=== PATIENT | male | born 1980 | race Caucasian/White ===

== ENCOUNTER 2017-06-05 14:08 | Observation (INO) | payer OTHER ==
[2017-06-05 14:45] LABS: #Basophils 0.1 thou/uL (0.0-0.2); #Eosinphils 0.4 thou/uL (0.0-0.7); #Lymphocytes 4.7 thou/uL (1.20-3.40); #Monocytes 1.2 thou/uL (0.11-0.59); #Neutrophils 7.3 thou/uL (1.40-6.50); %Basophils 0.8 % (0.0-1.0); %Eosinophils 2.8 % (0.0-10.0); %Lymphocytes 34.3 % (21.0-51.0); %Monocytes 8.5 % (0.0-10.0); Hematocrit 50.2 % (42.0-52.0); Mean Platelet Volume 8.3 fL (7.4-10.4); Red Blood Cell (RBC) Count 5.72 mill/uL (4.70-6.10); White Blood Cell (WBC) Count 13.6 thou/uL (4.8-10.8)
[2017-06-05 15:11] LABS: Troponin I Less than 0.010 ng/mL (< 0.028)
[2017-06-05 15:12] LABS: Bilirubin, Total 0.7 mg/dL (0.2-1.2); Calcium 10.1 mg/dL (7.8-10.44); Chloride 100 mmol/L (98-107)
[2017-06-05 15:16] LABS: Globulin 3.2 g/dL (2.4-3.5); Protein, Total 7.2 g/dL (6.0-8.3)
[2017-06-05 15:18] LABS: Carbon Dioxide 28 mmol/L (22-29)
[2017-06-05 15:19] LABS: Alkaline Phosphatase 74 U/L (40-150)
[2017-06-05 15:20] LABS: BUN (Urea Nitrogen) 13 mg/dL (8.9-20.6); Calc. Creatinine Clearance 0 mL/min (70-130); Estimated GFR-MDRD 90
[2017-06-05 15:21] LABS: AST (SGOT) 20 U/L (5-34)
[2017-06-05 15:22] LABS: ALT (SGPT) 42 U/L (8-55); CK (CPK) 108 U/L (30-200); Lipase 29 U/L (8-78)
--- NOTE | 2017-06-05 15:25 | RAD ---
PORTABLE CHEST: History: Chest pain. FINDINGS: Lungs are clear. No infiltrates seen. Heart and mediastinum unremarkable. IMPRESSION: No acute process. POS: [facility]
[2017-06-05 15:32] LABS: Anion Gap 14 mmol/L (10-20)
[2017-06-05 17:50] VITALS: BMI 51.1
[2017-06-05] MEDS ORDERED: Acetaminophen 650 MG Suppository PR PRN (18:18)
[2017-06-05] MEDS ORDERED: Nitroglycerin 0.4 MG TAB (25 Tab Bottle) PO PRN (18:18)
[2017-06-05] MEDS ORDERED: Dextrose 5% in Water 1,000 ML IV PRN (18:18)
[2017-06-05] MEDS ORDERED: Acetaminophen 325 MG TAB PO PRN (18:18)
[2017-06-05] MEDS ORDERED: HumaLOG 300 UNITS/3 ML VIAL SC PRN ×2 (18:18→19:59)
[2017-06-05] MEDS ORDERED: Dextrose 50% Abboject 50 ML SYRINGE SLOW IVP PRN (18:18)
[2017-06-05 18:23] LABS: Troponin I Less than 0.010 ng/mL (< 0.028)
--- NOTE | 2017-06-05 19:18 | HP ---
PRIMARY CARE PROVIDER: Esther Patino M.D. CHIEF COMPLAINT: Chest pain. HISTORY OF PRESENT ILLNESS: Mr. Miramontes is a pleasant 36-year-old gentleman, who was seen at [facility] on 06/05/2017. 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 He felt pain over the left side of his chest. He reports that it was sharp, 10/10 at its worst, initially nonradiating, but subsequently r adiating to the left arm, patient felt clammy and short of breath. He denies any nausea or vomiting. He cannot recall any aggravating or relieving factors. The chest pain lasted a couple of hours. REVIEW OF SYSTEM: The following complete review of systems was negative, unless otherwise mentioned in the HPI or below: Constitutional: Weight loss or gain, sense of well-being, ability to conduct usual activities, exerc ise tolerance. Skin/Breast: Rash, itching, changes in hair growth or loss, nail changes, breast lumps, tenderness, swelling, nipple discharge. Eyes: Vision, double vision, tearing, blind spots, pain. ENT/Mouth: Headaches (location, time of onset, duration, precipitating factors), vertigo, lightheade dness, injury. Vision, double vision, tearing, blind spots, pain, nose bleeding, colds, obstruction, discharge, dental difficulties, gingival bleeding, dentures, neck stiffness, pain, tenderness, masses in thyroid or other areas. Cardiovascular: Precordial pain, substernal distress, palpitations, syncope, dyspnea on exertion, or thopnea, nocturnal paroxysmal dyspnea, edema, cyanosis, hypertension, heart murmurs, varicosities, ph lebitis, claudication. Respiratory: Pain, shortness of breath, wheezing, stridor, cough, hemoptysis, fever or night sweats. Gastrointestinal: Poor appetite, dysphagia, indigestion, abdominal pain, heartburn, eructation, naus ea, vomiting, hematemesis, jaundice, constipation, or diarrhea, abnormal stools (gage-colored, tarry, bloody, greasy, foul smelling), flatulence, hemorrhoids, recent changes in bowel habits. Genitourinary: Urgency, frequency, dysuria, nocturia, hematuria, polyuria, oliguria, unusual (or narcisa nge in) color of urine, stones, hesitancy, change in size of stream, dribbling, acute retention or in continence, libido, potency. Musculoskeletal: Pain, swelling, redness or heat of muscles or joints, limitation, of motion, muscul ar weakness, atrophy, cramps. Neurologic/Psychiatric: Convulsions, paralyses, tremor, incoordination, parasthesias, difficulties w ith memory of speech, sensory or motor disturbances, or muscular coordination (ataxia, tremor), emoti onal problems, anxiety, depression, previous psychiatric care, unusual perceptions, hallucinations. Allergy/Immunologic: Skin rash, anemia, bleeding tendency, polydipsia, polyuria, intolerance to heat or cold. PAST MEDICAL HISTORY: Significant for hypertension, diabetes mellitus type 2, and dyslipidemia. PAST SURGICAL HISTORY: None. SOCIAL HISTORY: The patient quit smoking 3 months ago. He denies any alcohol use or recreational d rug use. FAMILY HISTORY: Significant for coronary artery disease and arrhythmias in his grandparents, materna l uncles. ALLERGIES: No known drug allergies. CURRENT MEDICATIONS: Include glipizide 2.5 mg daily, Victoza 0.6 mg daily, lisinopril 20 mg 2 times a day, metformin 1000 mg 2 times a day, and pravastatin 10 mg at bedtime. PHYSICAL EXAMINATION: GENERAL: On examination, Mr. Miramontes is awake and alert, not in acute distress. VITAL SIGNS: Blood pressure is 138/96, pulse is 74. He is breathing at rate of 16, and saturating 9 9% on room air. He is afebrile. He is morbidly obese, with a BMI of 51.2 kilogram per square meter. EYES: No scleral icterus. No conjunctival pallor. ENT: Moist mucosal membranes, no oropharyngeal erythema or exudates. NECK: Supple, nontender, normal range of movement, trachea is midline. RESPIRATORY: Accessory muscles of breathing are not active. Chest wall movements are symmetric bila terally. LUNGS: Clear to auscultation without wheeze, rhonchi, or crepitations. CARDIOVASCULAR: S1 and S2 are heard, regular. Peripheral pulses are palpable. No carotid bruit, no pericardial rub. ABDOMEN: Distended, nontender, bowel sounds heard. No hepatomegaly, no splenomegaly. NEUROLOGIC: Cranial nerves II through XII are intact. Deep tendon reflexes are 2+. MUSCULOSKELETAL: Power is 5/5 in all 4 extremities. Normal range of movement at all major extremity joints. SKIN: No rashes or subcutaneous nodules. LYMPHATIC: No cervical lymphadenopathy. PSYCHIATRIC: Normal mood and normal affect, patient is oriented to person, place, and time. LABORATORY DATA: Mr. Miramontes's labs and investigations were reviewed. I reviewed his electrocardiogra m, which shows normal sinus rhythm, no ST changes to suggest an acute coronary syndrome. I also revi ewed his chest x-ray, which does not show any pulmonary infiltrates. Laboratory investigation showed leukocytosis with 13,600 white cells, of which 53.6% are neutrophils, normal hemoglobin, normal plat elet count, elevated glucose of 250, but otherwise unremarkable. Comprehensive metabolic profile, no rmal troponin I x2 and normal lipase. ASSESSMENT AND PLAN: Mr. Miramontes is a pleasant 36-year-old gentleman, who was seen at [facility] on 06/05/2017. His problem list includes: 1. Chest pain: The etiology is unclear at this time. Mr. Miramontes will be admitted to the hospital fo r further management, including telemetry monitoring and stress test. We will also check D-dimer to rule out pulmonary embolism. 2. Diabetes mellitus type 2: We will start Accu-Cheks and insulin. We will continue Victoza and ho ld glyburide since patient will be n.p.o. in the morning. 3. Dyslipidemia: Continue pravastatin. 4. Hypertension: Continue home medications, monitor vital signs and titrate antihypertensives as ne eded. Many thanks for allowing me to participate in your patient's care. Please feel free to contact me wi th any questions or concerns. LEVEL OF RISK: High. LEVEL OF COMPLEXITY: High.
[2017-06-05] MEDS: Lisinopril 20 MG TAB PO SCH (19:28)
[2017-06-05] MEDS ORDERED: Pravastatin Sodium 20 MG TAB PO SCH (21:00)
[2017-06-06 04:09] LABS: #Basophils 0.1 thou/uL (0.0-0.2); #Eosinphils 0.4 thou/uL (0.0-0.7); #Lymphocytes 3.7 thou/uL (1.20-3.40); #Neutrophils 6.6 thou/uL (1.40-6.50); %Basophils 1.2 % (0.0-1.0); %Eosinophils 3.2 % (0.0-10.0); %Lymphocytes 31.2 % (21.0-51.0); %Monocytes 8.4 % (0.0-10.0); Hematocrit 46.6 % (42.0-52.0); Mean Platelet Volume 8.5 fL (7.4-10.4); Red Blood Cell (RBC) Count 5.34 mill/uL (4.70-6.10); White Blood Cell (WBC) Count 11.8 thou/uL (4.8-10.8)
[2017-06-06 04:30] LABS: Anion Gap 13 mmol/L (10-20); BUN (Urea Nitrogen) 15 mg/dL (8.9-20.6); Calc. Creatinine Clearance 302 mL/min (70-130); Calcium 9.3 mg/dL (7.8-10.44); Carbon Dioxide 23 mmol/L (22-29); Chloride 102 mmol/L (98-107); Estimated GFR-MDRD Greater than 90
[2017-06-06] MEDS ORDERED: metFORMIN 500 MG TAB PO SCH (08:00)
[2017-06-06] MEDS: Lisinopril 20 MG TAB PO SCH (08:36)
[2017-06-06] MEDS ORDERED: (Liraglutide [Victoza 2-Pak] 0.6 MG) SC SCH (09:00)
[2017-06-06] MEDS ORDERED: Enoxaparin Sodium 40 MG/0.4 ML SYRINGE SC SCH (09:00)
[2017-06-06 12:05] VITALS: BP 116/75; TEMP 97.6
--- NOTE | 2017-06-06 14:53 | NM ---
NUCLEAR MEDICINE CARDIAC MYOCARDIAL PERFUSION SPECT EJECTION FRACTION STUDY WALL MOTION CINE: HISTORY: 36-year-old male smoker with acute chest pain. TECHNIQUE: Stress-only study. Number of days: 1 Rest study: Tc99m sestamibi (Cardiolite) dose: Not administered. Exercise stress: treadmill. Stress study: Tc99m sestamibi (Cardiolite) dose: 31.0 mCi FINDINGS: CARDIAC (MYOCARDIAL PERFUSION) SPECT There is homogeneous uptake throughout the left ventricular myocardium, with no reversible defects or fixed defects. EJECTION FRACTION STUDY EF = 55% WALL MOTION CINE There is septal hypokinesis. The rest of the left ventricle moves normally. IMPRESSION: 1. No evidence of left ventricular ischemia. 2. Hypokinetic septum. VLAD Ornelas POS: [facility]
--- NOTE | 2017-06-06 22:33 | DIS ---
PRIMARY CARE PHYSICIAN: Esther Patino M.D. DATE OF ADMISSION: 06/05/2017 DATE OF DISCHARGE: 06/06/2017 DISCHARGE DIAGNOSIS: Chest pain. CONDITION OF PATIENT AT THE TIME OF DISCHARGE: Stable. I assessed Mr. Miramontes on the day of discharge . He denies any chest pain or shortness of breath. He denies any fevers or chills. Vital signs are stable. S1 and S2 are heard, regular. Lungs are clear to auscultation bilaterally. DISCHARGE MEDICATIONS: No changes were made to his home medications, which include glipizide 2.5 mg daily, Victoza 0.6 mg daily, lisinopril 20 mg 2 times a day, metformin 1000 mg 2 times a day and prav astatin 10 mg at bedtime. HOSPITAL COURSE: Mr. Miramontes is a pleasant 36-year-old gentleman who was admitted to [facility] on 06/05/2017 on observation status for chest pain, nonpleuritic. He had a normal D -dimer. He had normal cardiac enzymes and normal electrocardiogram. He underwent nuclear stress anupama t, which did not reveal any evidence of left ventricle ischemia. 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 Many thanks for allowing me to participate in your patient's care. Please feel free to contact me wi th any questions or concerns. DISCHARGE DESTINATION: Home.
== END 2017-06-06 14:33 | disposition home or self-care (01) ==
LOC: ERS 14:08 → 2SW 15:46
PROVIDERS: ADMIT Family Medicine; ATTEND Family Medicine
DX: R07.9 Chest pain, unspecified (principal); I10 Essential (primary) hypertension; E11.9 Type 2 diabetes mellitus without complications; E78.5 Hyperlipidemia, unspecified; Z79.84 Long term (current) use of oral hypoglycemic drugs; Z79.899 Other long term (current) drug therapy; Z87.891 Personal history of nicotine dependence
CPT/HCPCS: 36415; 36416; 71010; 78452; 80048; 80053; 82550; 82553; 83690; 84484; 85025; 85379; 93005; 93017; 96372; A9500; G0378; J1650

== ENCOUNTER 2018-11-16 05:49 | Emergency (ER) | payer OTHER ==
[2018-11-16] MEDS ORDERED: Ondansetron PF 4 MG/2 ML Vial ONE (06:16)
[2018-11-16] MEDS ORDERED: Ketorolac Tromethamine 30 MG/ML VIAL ONE (06:16)
[2018-11-16 06:29] LABS: #Basophils 0.1 thou/uL (0.0-0.2); #Eosinphils 0.5 thou/uL (0.0-0.7); #Lymphocytes 3.5 thou/uL (1.20-3.40); #Monocytes 0.9 thou/uL (0.11-0.59); #Neutrophils 9.5 thou/uL (1.40-6.50); %Basophils 0.8 % (0.0-1.0); %Eosinophils 3.3 % (0.0-10.0); %Lymphocytes 23.9 % (21.0-51.0); %Monocytes 6.5 % (0.0-10.0); %Neutrophils 65.5 % (42.0-75.0); Hemoglobin 15.5 g/dL (14.0-18.0); Mean Corpuscular HGB CONC 31.8 g/dL (32.0-36.0); Mean Corpuscular Hemoglobin 27.7 pg (27.0-31.0); Mean Platelet Volume 8.3 fL (7.4-10.4); Platelet Count 287 thou/uL (130-400); Red Blood Cell (RBC) Count 5.61 mill/uL (4.70-6.10); White Blood Cell (WBC) Count 14.5 thou/uL (4.8-10.8)
[2018-11-16 06:48] LABS: ALT (SGPT) 30 U/L (8-55); AST (SGOT) 16 U/L (5-34); Albumin 3.9 g/dL (3.5-5.0); Alkaline Phosphatase 68 U/L (40-150); Anion Gap 12 mmol/L (10-20); BUN (Urea Nitrogen) 10 mg/dL (8.9-20.6); Bilirubin, Total 0.6 mg/dL (0.2-1.2); Calc. Creatinine Clearance 0 mL/min (70-130); Calcium 9.3 mg/dL (7.8-10.44); Carbon Dioxide 26 mmol/L (22-29); Chloride 101 mmol/L (98-107); Estimated GFR-MDRD Greater than 90; Globulin 2.9 g/dL (2.4-3.5); Glucose 213 mg/dL (70-105); Lipase 94 U/L (8-78); Potassium 4.2 mmol/L (3.5-5.1); Protein, Total 6.8 g/dL (6.0-8.3); Sodium 135 mmol/L (136-145)
--- NOTE | 2018-11-16 08:01 | RAD ---
ABDOMINAL RADIOGRAPH 2 VIEWS: Date: 11/16/18 INDICATION: History of abdominal pain. FINDINGS: Lung bases are clear. Bowel gas pattern is nonspecific, but without evidence of obstruction. No suspi cious calcification is evident. No acute osseous abnormality is noted. IMPRESSION: No definite acute abnormality. POS: [facility]
--- NOTE | 2018-11-16 08:05 | ULT ---
RIGHT UPPER QUADRANT ULTRASOUND: Date: 11/16/18 INDICATION: Right upper quadrant pain. COMPARISON: Prior exam dated 10/23/11. FINDINGS: Overlying bowel gas and body habitus limit image detail. There is diffuse increased echogenicity of the liver suspicious for fatty infiltration. Visualized ga llbladder unremarkable. No sonographic Gamez's sign reported. Common bile duct measured 5.6 mm. Visu alized aspects of the pancreas are unremarkable. Right kidney measures 14.7 cm. No definite hydroneph rosis evident. IMPRESSION: Fatty liver. Otherwise no additional sonographic abnormality. POS: [facility]
== END 2018-11-16 08:10 | disposition home or self-care (01) ==
LOC: ERS 05:49
DX: K59.00 Constipation, unspecified (principal); R11.2 Nausea with vomiting, unspecified; E11.9 Type 2 diabetes mellitus without complications; I10 Essential (primary) hypertension; E78.00 Pure hypercholesterolemia, unspecified; F17.210 Nicotine dependence, cigarettes, uncomplicated; Z79.84 Long term (current) use of oral hypoglycemic drugs; Z79.899 Other long term (current) drug therapy
CPT/HCPCS: 36415; 74019; 76705; 80053; 83605; 83690; 85025; 96361; 96374; 96375; J1885; J2405

== ENCOUNTER 2018-11-17 12:11 | Emergency (ER) | payer OTHER ==
[~2018-11-17 12:11] MED LIST: ISOVUE-370 76%-LOCM 1 ML ONE
[2018-11-17 13:30] LABS: #Basophils 0.1 thou/uL (0.0-0.2); #Eosinphils 0.6 thou/uL (0.0-0.7); #Lymphocytes 4.7 thou/uL (1.20-3.40); #Monocytes 1.1 thou/uL (0.11-0.59); #Neutrophils 11.2 thou/uL (1.40-6.50); %Basophils 0.7 % (0.0-1.0); %Eosinophils 3.2 % (0.0-10.0); %Lymphocytes 26.4 % (21.0-51.0); %Monocytes 6.4 % (0.0-10.0); %Neutrophils 63.3 % (42.0-75.0); Hemoglobin 16.2 g/dL (14.0-18.0); Mean Corpuscular HGB CONC 33.5 g/dL (32.0-36.0); Mean Corpuscular Volume 86.6 fL (78.0-98.0); Mean Platelet Volume 8.3 fL (7.4-10.4); Platelet Count 320 thou/uL (130-400); RBC Distribution Width 11.8 % (11.5-14.5); Red Blood Cell (RBC) Count 5.59 mill/uL (4.70-6.10); White Blood Cell (WBC) Count 17.7 thou/uL (4.8-10.8)
[2018-11-17 13:55] LABS: ALT (SGPT) 25 U/L (8-55); AST (SGOT) 12 U/L (5-34); Albumin 4.2 g/dL (3.5-5.0); Alkaline Phosphatase 75 U/L (40-150); Anion Gap 14 mmol/L (10-20); BUN (Urea Nitrogen) 7 mg/dL (8.9-20.6); Bilirubin, Total 0.6 mg/dL (0.2-1.2); CK (CPK) 78 U/L (30-200); Calc. Creatinine Clearance 0 mL/min (70-130); Calcium 9.9 mg/dL (7.8-10.44); Carbon Dioxide 28 mmol/L (22-29); Chloride 102 mmol/L (98-107); Estimated GFR-MDRD Greater than 90; Globulin 2.8 g/dL (2.4-3.5); Glucose 155 mg/dL (70-105); Lipase 259 U/L (8-78); Potassium 4.6 mmol/L (3.5-5.1); Sodium 139 mmol/L (136-145)
[2018-11-17] MEDS ORDERED: Haloperidol Lactate 5 MG/ML VIAL ONE (15:24)
[2018-11-17] MEDS ORDERED: Ondansetron PF 4 MG/2 ML Vial ONE (15:24)
[2018-11-17 15:57] LABS: Bilirubin Negative (Negative); Blood, Urine Negative (Negative); Clarity CLEAR (Clear); Glucose, Urine (Dipstick) 500 mg/dL (Negative); Leukocyte Negative (Negative); Nitrite Negative (Negative); Protein, Urine (Dipstick) Negative (Neg-Trace); Specific Gravity, Urine 1.021 (1.002-1.036); pH, Urine 5.5 (5.0-9.0)
--- NOTE | 2018-11-17 16:24 | CT ---
CT OF THE ABDOMEN AND PELVIS WITH IV CONTRAST INDICATION: Worsening abdominal pain over the last 2 weeks COMPARISON: CT of the abdomen and pelvis dated October 23, 2011 FINDINGS: ABDOMEN: Lung bases: Clear Liver: Diffuse fatty liver Gallbladder: Normal appearing. Pancreas: There is mild inflammatory stranding surrounding the pancreatic head as well as the second stage of the duodenum. There is enhancement of the mucosa of the duodenum with mild wall thickening. Adrenal glands: Normal. Spleen: Normal. Kidneys: Normal. Retroperitoneum of the upper abdomen: No lymphadenopathy or free fluid is identified. Pelvis: Small and large bowel: There are a few scattered colonic diverticula involving the colon. There is mi ld amount of fluid seen within the colon. There is a retrocecal appendix that appears normal. Bladder: Normal. Rectal and perirectal soft tissues:Normal. Reproductive structures: Normal. Free fluid in pelvis: No free fluid is evident. Lymphadenopathy pelvis: No lymphadenopathy is evident. Osseous structures: No acute osseous abnormality is demonstrated. There is scattered degenerative and osteoarthritic change present. There are bilateral pars defects at L5. There is scattered degenerative and osteoarthritic changes. IMPRESSION: 1. Mild wall thickening and surrounding inflammatory stranding involving the second stage of the duod enum may reflect a duodenitis possibly related to infection or peptic ulcer disease. Recommend correlation with the patient's symptoms. This could also be secondary to inflammation from a focal pa ncreatitis of the pancreatic head as there is mild inflammatory stranding surrounding the pancreas. Recommend correlation with the patient's clinical exam and laboratory evaluation. 2. Nonspecific fluid seen within the colon. The patient reports history of a bowel prep. The fluid ma y be related to the patient's oral bowel prep. Mild colitis is not excluded.
== END 2018-11-17 17:35 | disposition home or self-care (01) ==
LOC: ERS 12:11
DX: R10.11 Right upper quadrant pain (principal); E11.9 Type 2 diabetes mellitus without complications; I10 Essential (primary) hypertension; F17.210 Nicotine dependence, cigarettes, uncomplicated; Z79.899 Other long term (current) drug therapy; Z79.84 Long term (current) use of oral hypoglycemic drugs
CPT/HCPCS: 36415; 74177; 80053; 81003; 82550; 83605; 83690; 85025; 96361; 96374; 96375; J1630; J2405; Q9966

== ENCOUNTER 2018-11-19 09:51 | Day surgery (SDC) | payer OTHER ==
[2018-11-16 11:43] VITALS: BMI 48.8
[2018-11-19] MEDS ORDERED: Lidocaine 1% PF 5 ML VIAL ONE (09:54)
[2018-11-19] MEDS ORDERED: PROPOFOL 200 MG/20 ML VIAL ONE (09:54)
[2018-11-19 11:14] LABS: #Basophils 0.1 thou/uL (0.0-0.2); #Eosinphils 0.7 thou/uL (0.0-0.7); #Lymphocytes 4.2 thou/uL (1.20-3.40); #Monocytes 1.2 thou/uL (0.11-0.59); #Neutrophils 10.9 thou/uL (1.40-6.50); %Basophils 0.6 % (0.0-1.0); %Eosinophils 3.9 % (0.0-10.0); %Lymphocytes 24.5 % (21.0-51.0); Hemoglobin 16.2 g/dL (14.0-18.0); Mean Corpuscular HGB CONC 33.9 g/dL (32.0-36.0); Mean Corpuscular Hemoglobin 29.4 pg (27.0-31.0); Mean Corpuscular Volume 86.6 fL (78.0-98.0); Mean Platelet Volume 8.2 fL (7.4-10.4); Platelet Count 333 thou/uL (130-400); RBC Distribution Width 11.8 % (11.5-14.5); Red Blood Cell (RBC) Count 5.53 mill/uL (4.70-6.10)
[2018-11-19 11:35] LABS: ALT (SGPT) 21 U/L (8-55); AST (SGOT) 11 U/L (5-34); Albumin 3.8 g/dL (3.5-5.0); Alkaline Phosphatase 61 U/L (40-150); Anion Gap 13 mmol/L (10-20); BUN (Urea Nitrogen) 7 mg/dL (8.9-20.6); Bilirubin, Total 0.7 mg/dL (0.2-1.2); Calc. Creatinine Clearance 275 mL/min (70-130); Calcium 9.5 mg/dL (7.8-10.44); Carbon Dioxide 25 mmol/L (22-29); Chloride 103 mmol/L (98-107); Estimated GFR-MDRD Greater than 90; Globulin 3.1 g/dL (2.4-3.5); Glucose 172 mg/dL (70-105); Lipase 70 U/L (8-78); Potassium 4.2 mmol/L (3.5-5.1); Protein, Total 6.9 g/dL (6.0-8.3); Sodium 137 mmol/L (136-145)
--- NOTE | 2018-11-19 13:19 | OP ---
DATE OF PROCEDURE: 11/19/2018 PREPROCEDURE DIAGNOSES: 1. Recent episodes of abdominal pains with inflation in the second portion of the duodenum and pancreas with mild elevation of lipase. Unclear if this is pancreatic etiology or duodenitis or duodenal ulcer. 2. Chronic constipation. PROCEDURES PERFORMED: Esophagogastroduodenoscopy with biopsy and colonoscopy with polypectomy. POSTPROCEDURE DIAGNOSES: 1. Esophagogastroduodenoscopy was notable for no evidence of duodenal inflammation. There was mild gastritis just with erythema with no ulcerations or erosions that explains the patient's upper abdominal pain. Biopsies were taken for Helicobacter pylori. 2. Colonoscopy notable for diverticulosis coli and normal ileum. No signs of colitis and one diminutive descending colon polyp, 3 mm removed by cold snare polypectomy. RECOMMENDATIONS: 1. Await pathology results. 2. Liquid diet, advance slowly as tolerated. 3. If the patient has increased pain, he will need to return to the emergency room for re-evaluation. If his lipase is elevated, will need to be admitted. 4. Follow up in my office in one week. 5. If he has recurrent bouts of pancreatitis, maybe need to look into Trulicity and stopping that medication. PROCEDURE IN DETAIL: The patient was informed of risks, benefits, and possible complications of endoscopy including perforation, reaction to medication, and aspiration, informed consent was obtained. The patient was brought to endoscopy suite, where he was sedated in a gradual fashion. The endoscope was advanced to the esophagus, stomach, and second and third portion of the duodenum was removed. The esophagus was normal. The stomach was notable for some very mild erythema in the antrum. Biopsies were taken to rule out H. pylori. Retroflexed views of the stomach performed in full distention, the stomach was noted to be normal. The duodenum was normal in the third portion with normal-appearing ampulla, clear bile coming out from that. No evidence of biliary obstruction or duodenal inflammation. The scope was then removed. The patient was turned to the room and rectal exam was performed, which was normal. The endoscope was advanced to the anal canal through the colon to the cecum and appendiceal orifice were normal. The scope was then slowly removed. The prep was fair. We have to irrigate quite a bit clear liquid stool out and found one 3 mm polyp in ascending colon, which was removed by cold snare polypectomy and submitted to Pathology. Retroflexed views were normal in the rectum. No other lesions were seen. The patient tolerated the procedure well. No complications. Job ID: [id number]
--- NOTE | 2018-11-19 15:30 | HP ---
HISTORY OF PRESENT ILLNESS: Mr. Miramontes was seen in the office on 11/13 because of on and off constipation in the past year and family history of colorectal cancer and pancreatic cancer in an uncle. He had began to go the emergency room about a year ago for constipation, was given GoLYTELY. He does have diabetes and has a hemoglobin A1c of 9.4. He has normal CMP, CBC, and TSH recently. We saw him in the office, we set him up for colonoscopy. In light of his severe problems of constipation, we placed him on Linzess. He was brought to the emergency room on the and the with abdominal pain in the upper abdomen region. He had a white count of 14 on the and 17 on the . He had no fever. He was hypertensive. He was given pain control. Lipase was 94 on the . On the , it was 259. He was not admitted on either occasion. Presently, he states he is pain free. He had an ultrasound of the gallbladder was normal. He had normal liver function tests. He had a CAT scan with slight fat stranding around on the pancreas and possible edema in the duodenum. He reports he is fine and feels okay now. In the impression of his CAT scan, they mention inflammatory wall thickening surrounding inflammation draining well in the second stage of the duodenum, possible duodenitis or peptic ulcer disease versus secondary inflammation from focal pancreatitis as there was mild inflammation in head of the pancreas and then, they also said there was nonspecific fluid seen, possible "colitis." Today, the patient states his pain is resolved. He has had no nausea or vomiting, tolerated the prep well and feels he is clear. He has had no fever or chills. He denies alcohol use. Denies drug use. Denies any recent new medications. PAST MEDICAL HISTORY: Reflux, type 2 diabetes, fatty liver, and hypertension. PAST SURGICAL HISTORY: None. MEDICATIONS: 1. Fiber. 2. Glipizide. 3. Lisinopril. 4. Metformin. 5. Pravastatin. 6. Trulicity. 7. Stool softener. SOCIAL HISTORY: Social beer once a month, liquor once a month. Tobacco, smokes daily. Drugs, none. 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 PHYSICAL EXAMINATION: VITAL SIGNS: Stable with afebrile. Here, temperature is 98. GENERAL: The patient is overweight. He is in no distress. LUNGS: Clear. HEART: Regular rate and rhythm without clicks, rubs, or murmurs. ABDOMEN: Soft and nontender without rebound or guarding. Deep palpation of upper abdomen reveals no rebound or guarding or tenderness. LABORATORY DATA: Labs here today; white count 17,000, hemoglobin 16, and platelet count 333. Common metabolic profile normal. Lipase 70. Urine glucose was 500 on both the and . ASSESSMENT: 1. Abdominal pain, resolved, unclear etiology. He does have some inflammation in the duodenum and the pancreas was mild. He had a mildly elevated lipase, which is now normal. It is unclear if this is a duodenitis with secondary inflammation of the pancreas or possibly a duodenal ulcer or whether this was pancreatitis secondary to inflammation in the duodenum. 2. Chronic constipation. CAT scan shows no evidence to overt stool in the colon. 3. Family history of colon cancer and pancreatic cancer in his distant relative. 4. Poorly controlled diabetes. 5. The patient is on Trulicity, which can have some risk of pancreatitis. 6. With regard to risk of pancreatitis, he is a smoker, but he has no evidence of gallstones nor any evidence of elevation of liver function tests to suggest biliary etiology. He is on Trulicity. He does drink alcohol, but not very commonly. RECOMMENDATIONS: We will add EGD with colonoscopy scheduled for today. Job ID: [id number]
== END 2018-11-19 13:11 | disposition home or self-care (01) ==
LOC: SDC 09:51
PROVIDERS: ATTEND Internal Medicine Gastroenterology
PROC: 0DB68ZX Excision of Stomach, Via Natural or Artificial Opening Endoscopic, Diagnostic (ICD-10-PCS; principal; 2018-11-19)
PROC: 0DBM8ZX Excision of Descending Colon, Via Natural or Artificial Opening Endoscopic, Diagnostic (ICD-10-PCS; principal; 2018-11-19)
DX: D12.4 Benign neoplasm of descending colon (principal); K57.30 Diverticulosis of large intestine without perforation or abscess without bleeding; K59.09 Other constipation; K29.70 Gastritis, unspecified, without bleeding; K21.9 Gastro-esophageal reflux disease without esophagitis; E11.9 Type 2 diabetes mellitus without complications; I10 Essential (primary) hypertension; F17.210 Nicotine dependence, cigarettes, uncomplicated; E66.3 Overweight; Z68.42 Body mass index [BMI] 45.0-49.9, adult; Z79.84 Long term (current) use of oral hypoglycemic drugs; Z79.899 Other long term (current) drug therapy
CPT/HCPCS: 36415; 80053; 83690; 85025; 88305; 88312

== ENCOUNTER 2018-11-19 21:10 | Inpatient (IN) | payer OTHER ==
[~2018-11-19 21:10] MED LIST changes: +Iopamidol 370 76% 50 ML VIAL FS ONE
[2018-11-19 21:40] LABS: #Basophils 0.1 thou/uL (0.0-0.2); #Eosinphils 0.5 thou/uL (0.0-0.7); #Lymphocytes 3.7 thou/uL (1.20-3.40); #Monocytes 1.4 thou/uL (0.11-0.59); %Basophils 0.5 % (0.0-1.0); %Eosinophils 2.6 % (0.0-10.0); %Lymphocytes 18.6 % (21.0-51.0); %Monocytes 6.9 % (0.0-10.0); %Neutrophils 71.4 % (42.0-75.0); Hemoglobin 16.8 g/dL (14.0-18.0); Mean Corpuscular HGB CONC 34.4 g/dL (32.0-36.0); Mean Corpuscular Hemoglobin 29.6 pg (27.0-31.0); Mean Corpuscular Volume 86.1 fL (78.0-98.0); Mean Platelet Volume 8.2 fL (7.4-10.4); Platelet Count 372 thou/uL (130-400); RBC Distribution Width 11.9 % (11.5-14.5); Red Blood Cell (RBC) Count 5.66 mill/uL (4.70-6.10); White Blood Cell (WBC) Count 19.7 thou/uL (4.8-10.8)
[2018-11-19 22:02] LABS: ALT (SGPT) 20 U/L (8-55); AST (SGOT) 9 U/L (5-34); Alkaline Phosphatase 69 U/L (40-150); Anion Gap 14 mmol/L (10-20); BUN (Urea Nitrogen) 7 mg/dL (8.9-20.6); Bilirubin, Total 0.9 mg/dL (0.2-1.2); Calc. Creatinine Clearance 0 mL/min (70-130); Calcium 9.7 mg/dL (7.8-10.44); Carbon Dioxide 24 mmol/L (22-29); Chloride 101 mmol/L (98-107); Estimated GFR-MDRD Greater than 90; Globulin 3.3 g/dL (2.4-3.5); Glucose 217 mg/dL (70-105); Lipase 171 U/L (8-78); Potassium 3.9 mmol/L (3.5-5.1); Protein, Total 7.3 g/dL (6.0-8.3); Sodium 135 mmol/L (136-145)
[2018-11-19] MEDS ORDERED: Ondansetron PF 4 MG/2 ML Vial ONE (22:08)
[2018-11-19] MEDS ORDERED: Morphine 4 MG/ML VIAL ONE (22:08)
[2018-11-19 22:29] LABS: Bilirubin Negative (Negative); Blood, Urine Negative (Negative); Clarity CLEAR (Clear); Glucose, Urine (Dipstick) 500 mg/dL (Negative); Leukocyte Negative (Negative); Nitrite Negative (Negative); Protein, Urine (Dipstick) Negative (Neg-Trace); Specific Gravity, Urine 1.014 (1.002-1.036); pH, Urine 7.5 (5.0-9.0)
[2018-11-20] MEDS ORDERED: Morphine 4 MG/ML VIAL ONE (01:02)
[2018-11-20] MEDS ORDERED: Ondansetron PF 4 MG/2 ML Vial IVP PRN (02:44)
[2018-11-20] MEDS ORDERED: Sodium Chloride 0.9% 1,000 ML IV SCH ×2 (02:45→03:17)
[2018-11-20 02:54] VITALS: BMI 46.7
[2018-11-20] MEDS ORDERED: Dextrose 50% Abboject 50 ML SYRINGE SLOW IVP PRN (03:20)
[2018-11-20] MEDS ORDERED: Dextrose 5% in Water 1,000 ML IV PRN (03:20)
[2018-11-20] MEDS ORDERED: HumaLOG 300 UNITS/3 ML VIAL SC PRN (03:20)
[2018-11-20] MEDS: Morphine 4 MG/ML VIAL SLOW IVP PRN ×3 (03:30→12:15)
[2018-11-20] MEDS: hydrALAZINE 20 MG/ML VIAL SLOW IVP PRN ×2 (03:45→12:23)
[2018-11-20] MEDS ORDERED: Acetaminophen 325 MG TAB PO PRN (05:40)
--- NOTE | 2018-11-20 07:08 | HP ---
The primary care doctorfor this patient is Dr. Esther Patino. The GI doctor is Dr. Siegel. CODE STATUS: Full code. TIME OF EVALUATION: 5:45 CHIEF COMPLAINT: Abdominal pain. HISTORY OF PRESENT ILLNESS: This is a 38-year-old male patient with past medical history of diabetes type 2, hypertension, and high cholesterol, who came to the hospital after having abdominal pain that was severe, 10/10, in the epigastric area, radiating to the back. No clear triggers. No alleviating factors. The patient reported that he got a colonoscopy done by Dr. Siegel and it showed some pancreatic inflammation; for the reason, he was sent here to the hospital. The symptoms have been present for the past few days, also associated with nausea and vomiting. REVIEW OF SYSTEMS: CONSTITUTIONAL: No fever, chills, or generalized weakness. RESPIRATORY: No cough, sputum production, or shortness of breath. CARDIOVASCULAR: No chest pain or palpitation. GASTROINTESTINAL: The patient has nausea and vomiting, no diarrhea or abdominal pain, as described in HPI. 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 GENITOURINARY: No burning on urination. EXTREMITIES: No leg swelling. All other systems were reviewed and negative except for the findings mentioned above. PAST MEDICAL HISTORY: Positive for diabetes type 2, hypertension, and high cholesterol. PAST SURGICAL HISTORY: The patient has no surgical history. PSYCHIATRIC HISTORY: No psych history. SOCIAL HISTORY: The patient denies any drug use. The patient smokes cigarettes on a daily basis, has smoked for the past 25 years, half a pack per day. KNOWN ALLERGIES: No known drug allergies. FAMILY HISTORY: Reviewed and mom and dad have no medical problems. REPORTED MEDICATIONS: 1. Glipizide. 2. Lisinopril. 3. Metformin. 4. Pravastatin. 5. Trulicity. 6. Zofran. 7. Acetaminophen. 8. Phenergan. 9. Augmentin. PHYSICAL EXAMINATION: VITAL SIGNS: On presentation, blood pressure 160/114 with heart rate 103, respiratory rate was 20, temperature 98.1, pain was 10/10, oxygen saturation was 98% on room air. GENERAL APPEARANCE: The patient is alert, oriented, not in acute distress. HEENT: Eyes; normal conjunctivae. Moist oral mucosa. Anicteric. No JVD. RESPIRATORY: Bilateral air entry. No rales. No wheezes. Symmetric expansion. CARDIOVASCULAR: Normal rate. Regular rhythm. No murmurs. No gallops. No edema. ABDOMEN: Soft. Normal bowel sounds. MUSCULOSKELETAL: Baseline range of motion and strength. No tenderness. SKIN: Warm, intact. No pallor. No rash. No redness. Peripheral pulses are present. Capillary refill seems to be intact. NEURO: No evidence of any new focal weakness. Baseline speech. Cranial nerves seems to be intact. PSYCH: The patient is in good mood. No anxiety. Optimal judgment. DIAGNOSTIC DATA: Abdomen and pelvis CT was done, but is not reported yet. No evidence of perforation. The patient is obese. Kidneys within normal size pancreatic inflammation. Official report needs to be followed with Radiology. Labs were reviewed. The patient has white count 19.7, hemoglobin 16.8, MCV 86.1, platelet count 372. Chemistry; sodium 135, potassium 3.9, chloride 101, carbon dioxide 24, anion gap 14, BUN 7, creatinine 0.85, GFR greater than 90, glucose 217, lactic acid 1.3, calcium 9.7. Total bilirubin 0.9. LFTs were negative. Lipase 171. UA was done and the patient has some mild ketonuria with glucosuria. Beta hydroxybutyrate 0.55. ASSESSMENT AND PLAN: The patient will be placed in the hospital with the following medical problems. 1. Acute pancreatitis. The patient received fluids, IV medication. Dr. Siegel has been consulted, as he referred the patient to the hospital and has been doing workup on the patient. We will follow recommendation. 2. Leukocytosis, likely secondary to acute pancreatitis. We will monitor white count. No evidence of any sepsis at this point. 3. Uncontrolled diabetes with blood sugar of 217. We will start the patient on sliding scale and we will monitor. Treat accordingly. 4. Hyponatremia, this is mild, sodium 135. We will monitor. No need for any acute intervention at this point. 5. Hyperlipidemia. Reconcile home medications. Low-cholesterol diet is advised. Continue pravastatin. 6. Uncontrolled hypertension. Reconcile home medications and adjust as needed. The patient needs IV fluids for the pancreatitis. IV p.r.n. medication and hydralazine for optimal control. 7. Deep venous thrombosis prophylaxis. Job ID: [id number]
[2018-11-20] MEDS: Enoxaparin Sodium 40 MG/0.4 ML SYRINGE SC SCH (08:04)
--- NOTE | 2018-11-20 08:29 | PDOC.PN ---
- Subjective Encounter Start Date: 11/20/18 Encounter Start Time: 08:25 Subjective: Patient c/o severe chest and epigastric pain, 02/16. -: He is s/p EGD/Colonoscopy yesterday, done due to bowel problems -: and epigastric pain he has been having x 2 weeks. No change in pain. His chest discomfort however is new and started yesterday. Has been constant since. Made worse by movement. Given Morphine 4 mg IV a few minutes ago, pain now / 10. Describes feeling as if "someone is sitting on my chest". Nonradiating. Denies any associated SOB. Reports vomiting forcefully and excessively when prepping for the colonoscopy. Last vomited last night. Denies any abdominal distention. No urinary symptoms. No fevers or chills. Walked around the ED last night. Slight lightheadedness. No dizziness. No pre-syncopal symptoms. - Objective Resuscitation Status - Order Detail: 11/20/18 05:40 Resuscitation Status Routine Resuscitation Status: FULL: Full Resuscitation Vital Signs & Weight: Vital Signs (12 hours) Temp Pulse Resp BP BP Pulse Ox 11/20/18 07:21 98.2 F 83 14 161/89 H 97 11/20/18 04:04 98.4 F 75 17 167/98 H 96 11/20/18 03:45 69 163/99 H 11/20/18 02:35 97.3 F L 69 18 163/99 H 163/99 H 97 Weight Weight 345 lb I&O: 11/19/18 11/20/18 11/21/18 06:59 06:59 06:59 Intake Total 1001.5 Output Total 325 Balance 676.5 Result Diagrams: 11/19/18 21:30 11/19/18 21:30 Additional Labs: Accuchecks 11/20/18 05:41 POC Glucose 163 H Phys Exam - Physical Examination Constitutional: NAD Patient appears to be in some discomfort Able to sit up easily HEENT: PERRLA, sclera anicteric, oral pharynx no lesions dry MMS. Neck: supple, full ROM Respiratory: clear to auscultation bilateral Cardiovascular: RRR reproducible discomfort on the left anterior chest Gastrointestinal: soft, no distention, positive bowel sounds tenderness to LUQ/epigastric region, no guarding/rigidity Obese Musculoskeletal: no edema, pulses present Neurological: normal sensation, moves all 4 limbs Psychiatric: A&O x 3 Skin: no rash Dx/Plan (1) Pancreatitis Code(s): K85.90 - ACUTE PANCREATITIS WITHOUT NECROSIS OR INFECTION, UNSP Status: Acute Plan: Epigastric pain present prior to procedures yesterday. No ETOH abuse or recent ETOH intake. On IVF. Repeat labs today. Continue NPO for now. Continue analgesia. (2) Chest pain Code(s): R07.9 - CHEST PAIN, UNSPECIFIED Status: Acute Plan: Chest pain constant since yesterday. CXR, rule out perf. Trend troponins. EKG stat. (3) Hypertension Code(s): I10 - ESSENTIAL (PRIMARY) HYPERTENSION Status: Acute Plan: Resume home meds. Monitor BP. - Plan cont current plan of care, out of bed/ambulate, DVT proph w/SCDs Will discuss with Dr. Gr for further recommendations. * .
--- NOTE | 2018-11-20 09:05 | CT ---
PRELIMINARY REPORT/[facility]/EMERGENTY AFTER-HOURS PROCEDURE CT Abdomen and Pelvis With Contrast EXAM DATE/TIME: 11/19/2018 11:56 PM CLINICAL HISTORY: 38 years old, male; Pain and signs and symptoms; Nausea and vomiting; Abdominal pain TECHNIQUE: Imaging protocol: Axial computed tomography images of the abdomen and pelvis with intravenous contras t. Coronal reformatted images were created and reviewed. COMPARISON: No relevant prior studies available. FINDINGS: ABDOMEN: Liver: No mass. Gallbladder and bile ducts: No calcified stones. No ductal dilation. Pancreas: Mild prominence of the pancreatic head and mild adjacent fat stranding. Spleen: No mass. Adrenals: No mass. Kidneys and ureters: No enhancing mass or hydronephrosis. Stomach and bowel: Oral contrast is seen in the stomach and proximal small bowel. No evidence of obst ruction or bowel wall thickening. Appendix: Normal appendix. PELVIS: Bladder: Normal. Reproductive: Normal. ABDOMEN and PELVIS: Intraperitoneal space: No free air or free fluid. Bones/joints: No suspicious bone lesions. Soft tissues: No acute findings. Vasculature: No abdominal aortic aneurysm. Lymph nodes: Mildly prominent jono hepatis lymph node measuring up to 1.6 cm in short diameter, like ly reactive. IMPRESSION: Appearance of the pancreatic head suggest early pancreatitis. Thank you for allowing us to participate in the care of your patient. Dictated and Authenticated by: Josie Rai MD 11/20/2018 12:49 AM Central Time ([place] & [place]) CT ABDOMEN AND PELVIS: 11/19/2018 2358 HOURS HISTORY: Performed on an emergency basis. Abdominal pain. Colonoscopy. COMPARISON: 11/17/2018 FINDINGS: Subtle inflammatory changes in the right upper quadrant involve the second portion of the duodenum an d the pancreatic head. The appearance is similar to the prior study form 11/17/2018 and could reflec t pancreatitis and/or duodenitis. I agree with the preliminary report by Dr. Rai from [facility]. POS: [facility]
[2018-11-20 09:13] LABS: #Basophils 0.1 thou/uL (0.0-0.2); #Eosinphils 0.6 thou/uL (0.0-0.7); #Lymphocytes 3.6 thou/uL (1.20-3.40); #Monocytes 1.2 thou/uL (0.11-0.59); #Neutrophils 13.3 thou/uL (1.40-6.50); %Basophils 0.8 % (0.0-1.0); %Monocytes 6.4 % (0.0-10.0); %Neutrophils 70.8 % (42.0-75.0); Hemoglobin 17.1 g/dL (14.0-18.0); Mean Corpuscular HGB CONC 34.2 g/dL (32.0-36.0); Mean Corpuscular Hemoglobin 29.5 pg (27.0-31.0); Mean Corpuscular Volume 86.1 fL (78.0-98.0); Mean Platelet Volume 8.2 fL (7.4-10.4); Platelet Count 357 thou/uL (130-400); RBC Distribution Width 11.8 % (11.5-14.5); Red Blood Cell (RBC) Count 5.81 mill/uL (4.70-6.10); White Blood Cell (WBC) Count 18.8 thou/uL (4.8-10.8)
--- NOTE | 2018-11-20 09:14 | RAD ---
EXAM: CHEST TWO VIEWS: History: Chest pain. FINDINGS: Heart size is normal. The lungs are clear. IMPRESSION: No acute intrathoracic disease. POS: [facility]
[2018-11-20 09:37] LABS: ALT (SGPT) 18 U/L (8-55); AST (SGOT) 10 U/L (5-34); Alkaline Phosphatase 69 U/L (40-150); Anion Gap 14 mmol/L (10-20); BUN (Urea Nitrogen) 6 mg/dL (8.9-20.6); Bilirubin, Total 0.8 mg/dL (0.2-1.2); Calc. Creatinine Clearance 270 mL/min (70-130); Calcium 9.7 mg/dL (7.8-10.44); Carbon Dioxide 22 mmol/L (22-29); Chloride 103 mmol/L (98-107); Estimated GFR-MDRD Greater than 90; Globulin 3.4 g/dL (2.4-3.5); Glucose 171 mg/dL (70-105); Lipase 130 U/L (8-78); Potassium 4.1 mmol/L (3.5-5.1); Protein, Total 7.4 g/dL (6.0-8.3); Sodium 135 mmol/L (136-145)
[2018-11-20] MEDS: Sodium Chloride 0.9% 1,000 ML IV SCH ×4 (12:15→23:54)
--- NOTE | 2018-11-20 16:52 | EKG ---
Test Reason : Blood Pressure : / mmHG Vent. Rate : 087 BPM Atrial Rate : 087 BPM P-R Int : 144 ms QRS Dur : 102 ms QT Int : 392 ms P-R-T Axes : 023 004 013 degrees QTc Int : 471 ms Normal sinus rhythm Normal ECG When compared with ECG of 05-JUN-2017 14:14, No significant change was found Confirmed by DR. Lesa LEMUS (3) on 11/20/2018 4:52:13 PM Referred By: JOSE JO Confirmed By:DR. Lesa LEMUS
[2018-11-20] MEDS: Morphine 2 MG/ML SYRINGE SLOW IVP PRN ×2 (17:05→19:59)
[2018-11-20] MEDS: Simvastatin 5 MG TAB PO SCH (20:02)
[2018-11-20] MEDS ORDERED: Lisinopril 20 MG TAB PO SCH (21:00)
--- NOTE | 2018-11-20 22:52 | CON ---
DATE OF CONSULTATION: 11/20/2018 HISTORY OF PRESENT ILLNESS: Mr. Miramontes called last night late after he gotten home after his EGD and colonoscopy noted that his epigastric pain had returned. His notes he had only taken his lisinopril for blood pressure, but his pain is already starting before that. He tried pushing liquids, staying n.p.o., but the pain worsened, they called me and I instructed them to come back to the emergency room as he had been in the emergency room on Monday with a white count of 17,000 of unclear etiology. He has had about 4 L of fluid today so far. He has voided 3 times. He states the urine is dark. He reports that he still is having pain. The nurses had to give him morphine and hydralazine for his blood pressure. He has had no fever or chills. He has had no vomiting. He has had no bowel movement. PAST MEDICAL HISTORY: Hypertension, diabetes, morbid obesity, chronic constipation, hyperlipidemia. He has no other medical problems. PAST SURGICAL HISTORY: None. He had upper and lower endoscopy yesterday for epigastric pain, questionable duodenitis versus mild pancreatitis and chronic constipation. SOCIAL HISTORY: He denies drug use. He does smoke a half pack per day for 25 years. Minimal alcohol use, none regularly. MEDICATIONS: At home, 1. Glipizide. 2. Lisinopril. 3. Metformin. 4. Pravastatin. 5. Trulicity. 6. Zofran. 7. Acetaminophen. 8. Phenergan. 9. Augmentin. Most of these are chronic. Lisinopril has been for over 2 years. Trulicity has been over the past several months. Present medications here; 1. Tylenol. 2. Lovenox. 3. P.r.n. hydralazine. 4. Insulin sliding scale. 5. Lisinopril. 6. Morphine. 7. Simvastatin. Previously, he was getting fluids at 150 an hour. I see no IV fluids order for the patient presently, although . PHYSICAL EXAMINATION: VITAL SIGNS: Afebrile since admission, temperature 98.5, pulse 90, blood pressure 139/85, although the nurse notes he has had pressure of 179/120 earlier this morning. GENERAL: He is resting in bed. He is alert, he is awake. LUNGS: Clear. NECK: Supple without any adenopathy. ABDOMEN: Soft, nontender without rebound or guarding. There is some mild epigastric tenderness. There is no palpable mass noted. EXTREMITIES: No clubbing, cyanosis, or edema. SKIN: Without rash or lesions. LABORATORY STUDIES: White count last night was 19,000, today is 18,000. Hemoglobin was 16.8 last night, 17.1 this morning. Platelets 375. D-dimer is normal. Sodium 135 this morning, potassium 4.1. BUN and creatinine are 6 and 0.82, glucose 172. Hemoglobin A1c on 11/08 was 9.4. Liver function tests normal with a bilirubin of 0.8. AST and ALT are 10 and 18. Troponins were negative. Alkaline phosphatase 69, lipase was 70 yesterday while I saw him at the time of his endoscopy. When he returned at 2100 hours, it was 171, now it is 130 today. Beta-hydroxybutyrate was 0.55. CAT scan yesterday done in the emergency room showed normal liver, normal gallbladder, pancreas with mild prominence of the pancreatic head and mild adjacent fat stranding. ASSESSMENT: The patient appears to have some pancreatitis. I was concerned he may have an ulcer, duodenitis, however, his EGD yesterday was normal. Lipase is only mildly elevated. The etiology of pancreatitis is unclear. He does not drink alcohol. He does not have any evidence of biliary stone disease. He has been on lisinopril for many years, although these ALEJANDRA inhibitors are known to cause pancreatitis and it can happen at any time, I would stop that medicine and at home he was taking Trulicity which was newer medicine for him, although I am not sure this can cause pancreatitis, now we are going to stop that too. PLAN: 1. Increase IV fluids. Monitor urine output and strict in's and ou's and labs. 2. Stop lisinopril and Trulicity. 3. Nicotine patch if patient needs. ADDENDUM: We will go ahead and on reviewing his old labs, he had his triglycerides over 600 back in 2017. Hypertriglyceridemia in this poorly-controlled diabetic, could be a cause of pancreatitis. I am going to go ahead and add triglycerides to his morning labs from this morning. Job ID: [id number]
[2018-11-21] MEDS: Sodium Chloride 0.9% 1,000 ML IV SCH ×2 (03:57→11:13)
[2018-11-21 06:38] LABS: #Basophils 0.1 thou/uL (0.0-0.2); #Eosinphils 0.6 thou/uL (0.0-0.7); #Lymphocytes 3.3 thou/uL (1.20-3.40); #Monocytes 0.9 thou/uL (0.11-0.59); #Neutrophils 9.5 thou/uL (1.40-6.50); %Basophils 0.8 % (0.0-1.0); %Eosinophils 4.5 % (0.0-10.0); %Lymphocytes 22.7 % (21.0-51.0); %Monocytes 6.3 % (0.0-10.0); %Neutrophils 65.8 % (42.0-75.0); Hemoglobin 14.5 g/dL (14.0-18.0); Mean Corpuscular HGB CONC 31.7 g/dL (32.0-36.0); Mean Corpuscular Hemoglobin 27.6 pg (27.0-31.0); Mean Corpuscular Volume 87.1 fL (78.0-98.0); Mean Platelet Volume 8.3 fL (7.4-10.4); Platelet Count 313 thou/uL (130-400); RBC Distribution Width 11.7 % (11.5-14.5); Red Blood Cell (RBC) Count 5.27 mill/uL (4.70-6.10); White Blood Cell (WBC) Count 14.4 thou/uL (4.8-10.8)
[2018-11-21 06:47] LABS: Anion Gap 12 mmol/L (10-20); BUN (Urea Nitrogen) 9 mg/dL (8.9-20.6); Calc. Creatinine Clearance 296 mL/min (70-130); Calcium 8.8 mg/dL (7.8-10.44); Carbon Dioxide 23 mmol/L (22-29); Chloride 105 mmol/L (98-107); Estimated GFR-MDRD Greater than 90; Glucose 137 mg/dL (70-105); Lipase 58 U/L (8-78); Sodium 136 mmol/L (136-145)
[2018-11-21] MEDS: Enoxaparin Sodium 40 MG/0.4 ML SYRINGE SC SCH (08:50)
--- NOTE | 2018-11-21 14:24 | PDOC.PN ---
- Subjective Encounter Start Date: 11/21/18 Encounter Start Time: 14:23 Subjective: no nausea, pain - Objective Resuscitation Status - Order Detail: 11/20/18 05:40 Resuscitation Status Routine Resuscitation Status: FULL: Full Resuscitation MAR Reviewed: Yes Vital Signs & Weight: Vital Signs (12 hours) Temp Pulse Resp BP Pulse Ox 11/21/18 11:00 98 F 80 18 131/82 97 11/21/18 07:36 98 F 79 14 116/77 97 11/21/18 04:24 98.2 F 80 20 130/85 97 Weight Weight 345 lb I&O: 11/20/18 11/21/18 11/22/18 06:59 06:59 06:59 Intake Total 1001.5 4100 Output Total 325 600 Balance 676.5 3500 Result Diagrams: 11/21/18 05:51 11/21/18 05:51 Additional Labs: Accuchecks 11/21/18 11/21/18 11/20/18 11:40 05:39 23:34 POC Glucose 115 H 127 H 118 H 11/20/18 19:39 POC Glucose 147 H Phys Exam - Physical Examination Neck: no JVD Respiratory: clear to auscultation bilateral Cardiovascular: RRR, no significant murmur Gastrointestinal: soft, non-tender, positive bowel sounds Musculoskeletal: no edema Dx/Plan (1) DM type 2 (diabetes mellitus, type 2) Status: Chronic Qualifiers: 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: 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 use Diabetes mellitus complication status: without complication Qualified Code(s): E11.9 - Type 2 diabetes mellitus without complications (2) Dyslipidemia Code(s): E78.5 - HYPERLIPIDEMIA, UNSPECIFIED Status: Chronic (3) Hypertension Code(s): I10 - ESSENTIAL (PRIMARY) HYPERTENSION Status: Chronic (4) Pancreatitis Code(s): K85.90 - ACUTE PANCREATITIS WITHOUT NECROSIS OR INFECTION, UNSP Status: Acute Qualifiers: Chronicity: acute Pancreatitis type: unspecified pancreatitis type Acute pancreatitis complication: no infection or necrosis Qualified Code(s): K85.90 - Acute pancreatitis without necrosis or infection, unspecified - Plan abd benign- start diet -: start metformin -: if does well , probable DC in am * .
--- NOTE | 2018-11-21 15:52 | PRG ---
DATE OF SERVICE: 11/21/2018 SUBJECTIVE: Mr. Miramontes has no abdominal pain today. He has had no nausea or vomiting. He is tolerating clear liquids so far. OBJECTIVE: VITAL SIGNS: Temperature 98, pulse 80, and blood pressure 131/82. GENERAL: He is in no acute distress. He is alert and oriented x3. EYES: Have no scleral icterus. LUNGS: Clear to auscultation bilaterally. HEART: Regular rate and rhythm without murmur. ABDOMEN: Soft, nontender, nondistended. Bowel sounds are present. EXTREMITIES: No lower extremity edema. IMPRESSION: 1. Acute pancreatitis, mild without secondary organ failure. He was confirmed to have pancreatitis with a lipase greater than three times upper limit of normal with inflammatory changes of the pancreas on CT scan. His pain is resolved. I suspect the etiology of the pancreatitis is the Trulicity. He has no significant alcohol intake. His liver tests have always been normal and his gallbladder appears normal by ultrasound. Triglyceride was normal at 120. He has had elevated triglyceride level to 600 back in 2017, but certainly, he is not demonstrating on this admission level, so that would be expected to cause pancreatitis. 2. Diabetes mellitus. Unfortunately, Mr. 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 Also, he has to keep his hemoglobin A1c less than 10. His diabetes has been managed by Dr. Esther Patino. The patient reports Dr. Patino will be retiring soon. The patient's hemoglobin A1c was 9.4 back in November. I believe, he will have to discontinue the Trulicity. 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 RECOMMENDATIONS: 1. Hold Trulicity. 2. Check IgG subclass 4 as a marker for autoimmune pancreatitis, however, given that he has not had chronic recurrent pancreatitis in the past, I doubt this is an autoimmune pancreatitis. 3. If he has recurrent pancreatitis despite holding Trulicity, then next step will likely be cholecystectomy and consideration for endoscopic ultrasound. 4. Dr. Siegel will be back tomorrow. Job ID: [id number]
[2018-11-21] MEDS: metFORMIN 500 MG TAB PO SCH (16:18)
[2018-11-21] MEDS: Simvastatin 5 MG TAB PO SCH (20:22)
[2018-11-22] MEDS: metFORMIN 500 MG TAB PO SCH (08:30)
[2018-11-22] MEDS: Enoxaparin Sodium 40 MG/0.4 ML SYRINGE SC SCH (08:30)
[2018-11-22 11:49] VITALS: BP 110/71; TEMP 97.7
--- NOTE | 2018-11-23 04:23 | DIS ---
DATE OF ADMISSION: 11/20/2018 DATE OF DISCHARGE: 11/22/2018 DIAGNOSES AT THE TIME OF DISCHARGE: 1. Acute pancreatitis, presumed that it is related to Trulicity use one of the diabetic medications he is on at home. 2. Morbid obesity. 3. Diabetes mellitus type 2. 4. Chest pain, resolved, noncardiac, most likely related to acute pancreatitis. 5. hypertension. CONSULTANTS: Dr. Vasiliy Siegel and Dr. Garth Modi, gastroenterologists. HOSPITAL COURSE: The patient was a 38-year-old male, who was admitted to the hospital with abdominal pain. This was rated at 10/10 in the epigastric area, radiated to the back without any clear triggers or alleviating factors. Apparently, he got a colonoscopy done by Dr. Siegel recently which showed some pancreatic inflammation and was associated with nausea and vomiting for the last few days prior to this hospitalization. At the time of emergency room visit, his white count was up to 19.7, hemoglobin 16.8, platelet count 372. Normal electrolytes. BUN of 7, creatinine 0.85, glucose 217. LFTs were negative. Lipase was 171. UA was done and showed mild ketonuria with glucosuria. Beta hydroxybutyrate was 0.55. The patient was placed on IV fluids. GI was consulted. He received sliding scale with insulin according to the protocol. Draw Operator recommended to stop Trulicity level went back to normal. In the meantime, his CT of the pelvis and abdomen was done and it showed subtle inflammatory changes in the right upper quadrant involving the 2nd portion of the duodenum and pancreatic head and the findings were very similar to findings from 11/17/2018. His pain gradually improved. He is able to tolerate food without any problems. I feel that Trulicity is possible cause of his pancreatitis. He was asked to stop it. PHYSICAL EXAMINATION: VITAL SIGNS: His vitals today; blood pressure 128/85, pulse is 72, temperature is 97.9, respiratory rate is 18, O2 saturation is 97% on room air. LUNGS: Clear. HEART: S1, S2 normal. ABDOMEN: Soft, nontender. Bowel sounds are present. The patient is seen, examined and evaluated before he is discharged home. CONDITION: He is discharged home in good condition. ACTIVITY: Tolerated. DIET: 2000 calories ADA diet recommended. MEDICATIONS: At the time of discharge: 1. Glipizide 10 mg twice a day. 2. Lisinopril 20 mg at bedtime. 3. Pravastatin 10 mg at bedtime. 4. Metformin 1000 mg twice a day. 5. Stop Trulicity. FOLLOWUP: Follow up with the primary care physician in 1 week. TIME SPENT: The time spent on this discharge is less than 30 minutes. Job ID: [id number]
== END 2018-11-22 15:15 | disposition home or self-care (01) | DRG 439 ==
LOC: ERS 21:10 → OBSVTOIN 11-20 01:02 → SURG A 11-20 01:02
PROVIDERS: ADMIT Hospitalist; ATTEND Hospitalist
DX: K85.30 Drug induced acute pancreatitis without necrosis or infection (principal); Z68.42 Body mass index [BMI] 45.0-49.9, adult; E66.01 Morbid (severe) obesity due to excess calories; E11.9 Type 2 diabetes mellitus without complications; I10 Essential (primary) hypertension; D72.829 Elevated white blood cell count, unspecified; K59.09 Other constipation; E78.00 Pure hypercholesterolemia, unspecified; Z79.84 Long term (current) use of oral hypoglycemic drugs; Z79.899 Other long term (current) drug therapy; T38.3X5A Adverse effect of insulin and oral hypoglycemic [antidiabetic] drugs, initial encounter
CPT/HCPCS: 36415; 36416; 71046; 74177; 80048; 80053; 81003; 82010; 82150; 82550; 82787; 83605; 83690; 84478; 84484; 85025; 87086; 88305; 88312; 93005; 93010; 96361; 96374; 96375; 96376; J0360; J1630; J1650; J2001; J2270; J2405; J2704; Q9966; Q9967

== ENCOUNTER 2019-02-18 11:02 | Inpatient (IN) | payer OTHER ==
[2019-02-18 11:37] LABS: #Basophils 0.1 thou/uL (0.0-0.2); #Eosinphils 0.4 thou/uL (0.0-0.7); #Lymphocytes 4.3 thou/uL (1.20-3.40); #Neutrophils 9.1 thou/uL (1.40-6.50); %Basophils 0.8 % (0.0-1.0); %Eosinophils 2.4 % (0.0-10.0); %Lymphocytes 29.1 % (21.0-51.0); %Monocytes 6.4 % (0.0-10.0); %Neutrophils 61.4 % (42.0-75.0); Hemoglobin 16.6 g/dL (14.0-18.0); Mean Corpuscular HGB CONC 33.3 g/dL (32.0-36.0); Mean Corpuscular Hemoglobin 28.3 pg (27.0-31.0); Mean Corpuscular Volume 84.9 fL (78.0-98.0); Mean Platelet Volume 8.4 fL (7.4-10.4); Platelet Count 312 thou/uL (130-400); RBC Distribution Width 12.4 % (11.5-14.5); Red Blood Cell (RBC) Count 5.89 mill/uL (4.70-6.10); White Blood Cell (WBC) Count 14.8 thou/uL (4.8-10.8)
[2019-02-18 12:04] LABS: ALT (SGPT) 28 U/L (8-55); AST (SGOT) 11 U/L (5-34); Albumin 4.3 g/dL (3.5-5.0); Alkaline Phosphatase 75 U/L (40-150); Anion Gap 12 mmol/L (10-20); BUN (Urea Nitrogen) 9 mg/dL (8.9-20.6); Bilirubin, Total 0.6 mg/dL (0.2-1.2); Calc. Creatinine Clearance 0 mL/min (70-130); Carbon Dioxide 24 mmol/L (22-29); Chloride 103 mmol/L (98-107); Estimated GFR-MDRD Greater than 90; Globulin 3.2 g/dL (2.4-3.5); Glucose 254 mg/dL (70-105); Lipase 375 U/L (8-78); Potassium 4.1 mmol/L (3.5-5.1); Protein, Total 7.5 g/dL (6.0-8.3); Sodium 135 mmol/L (136-145)
[2019-02-18] MEDS ORDERED: Morphine 4 MG/ML VIAL ONE (12:26)
[2019-02-18] MEDS ORDERED: Ondansetron PF 4 MG/2 ML Vial ONE (12:26)
[2019-02-18 12:38] LABS: Bilirubin Negative (Negative); Blood, Urine Negative (Negative); Clarity Clear (Clear); Glucose, Urine (Dipstick) Greater than 1000 mg/dL (Negative); Leukocyte Negative Leu/uL (Negative); Nitrite Negative (Negative); Protein, Urine (Dipstick) Negative (Neg-Trace); Urobilinogen Normal mg/dL (Less than 2)
[2019-02-18] MEDS ORDERED: Ondansetron PF 4 MG/2 ML Vial IVP PRN (17:36)
[2019-02-18] MEDS: Morphine 4 MG/ML VIAL SLOW IVP PRN (18:29)
[2019-02-18] MEDS ORDERED: Dextrose 50% Abboject 50 ML SYRINGE SLOW IVP PRN (18:45)
[2019-02-18] MEDS ORDERED: Acetaminophen 325 MG TAB PO PRN (18:45)
[2019-02-18] MEDS ORDERED: Dextrose 5% in Water 1,000 ML IV PRN (18:45)
[2019-02-18] MEDS ORDERED: Acetaminophen 650 MG Suppository PR PRN (18:45)
--- NOTE | 2019-02-18 19:34 | HP ---
PRIMARY CARE PROVIDER: Dr. Esther Patino. CHIEF COMPLAINT: Abdominal pain. HISTORY OF PRESENT ILLNESS: Mr. Miramontes is a pleasant 38-year-old gentleman, who was seen at [facility] on February 18, 2019. He was hospitalized at this facility for acute pancreatitis from November 20 to of this year. At that time, it was attributed to Trulicity use. He reports that he was doing well until 3 days ago. At that time, he started having pain in the epigastrium. He describes it as sharp, radiating to the back, subsequently present in both upper quadrants. He reports nausea and vomiting, which started today. He denies any fevers or chills. He denies any chest pain. He describes the pain as dull currently, 8/10, accompanied by nausea. No history of diarrhea. The patient is unable to tolerate oral intake. REVIEW OF SYSTEMS: All systems were reviewed and found to be negative except for the pertinent positives mentioned above. PAST MEDICAL HISTORY: Diabetes mellitus, type 2; hypertension; dyslipidemia; and acute pancreatitis. PAST SURGICAL HISTORY: None. SOCIAL HISTORY: Occasional alcohol use. The patient smokes half a pack of cigarettes a day. Denies drug use. FAMILY HISTORY: No family history of premature coronary artery disease. ALLERGIES: NO KNOWN DRUG ALLERGIES. CURRENT MEDICATIONS: 1. Lisinopril 20 mg daily. 2. Metformin 1000 mg 2 times a day. 3. Pravastatin 10 mg daily. 4. Jardiance 10 mg daily. 5. Glimepiride 4 mg 2 times a day. PHYSICAL EXAMINATION: GENERAL: On examination, Mr. Miramontes is awake and alert, not in acute distress. He is morbidly obese. VITAL SIGNS: Blood pressure is 122/69, pulse 73, respiratory rate 18, and oxygen saturation 97% on room air. He is afebrile. EYES: No scleral icterus. No conjunctival pallor. ENT: Moist mucosal membranes. No oropharyngeal erythema or exudates. NECK: Supple and nontender. Trachea is midline. RESPIRATORY: Accessory muscles of breathing are not active. Chest wall movements are symmetric bilaterally. Lungs are clear to auscultation without wheeze, rhonchi, or crepitations. CARDIOVASCULAR: S1 and S2 are heard, regular. Peripheral pulses palpable. ABDOMEN: Distended. Mild epigastric tenderness. No guarding or rigidity. Bowel sounds are heard. NEUROLOGIC: Cranial nerves 2 through 12 are intact. SKIN: No rashes or subcutaneous nodules. MUSCULOSKELETAL: Power is 5/5 in all 4 extremities. LYMPHATIC: No cervical lymphadenopathy. PSYCHIATRIC: Normal mood. Normal affect. The patient is oriented to person, place, and time. LABORATORY DATA: Mr. Miramontes's labs and investigations were reviewed. He has leukocytosis with 14,800 white cells, of which 61.4% are neutrophils. Hemoglobin and platelet count are normal. Sodium is decreased at 135, potassium is normal, creatinine is normal. LFTs are normal. Lipase is elevated at 375. Calcium level is normal. Urinalysis is positive for glucose. ASSESSMENT AND PLAN: Mr. Miramontes is a pleasant 38-year-old gentleman, who was seen at [facility] on February 18, 2019. His problem list includes: 1. Acute pancreatitis: Etiology is unclear at this time. The patient will be admitted to the hospital for further management. We will recheck lipase level. We will provide bowel rest. We will provide intravenous hydration. 2. Diabetes mellitus, type 2: We will start Accu-Cheks and insulin sliding scale. 3. Hypertension: We will resume home medications, monitor vital signs, and titrate antihypertensives as needed. 4. Dyslipidemia: We will continue statin. Many thanks for allowing me to participate in your patient's care. Please feel free to contact me with any questions or concerns. LEVEL OF RISK: Moderate. LEVEL OF COMPLEXITY: Moderate. Job ID: [id number]
[2019-02-18] MEDS: Sodium Chloride 0.9% 1,000 ML IV SCH (20:26)
[2019-02-18] MEDS: Nicotine 14 MG PATCH TD SCH (20:30)
[2019-02-19] MEDS: Morphine 4 MG/ML VIAL SLOW IVP PRN ×2 (00:30→06:32)
[2019-02-19 05:47] LABS: #Basophils 0.1 thou/uL (0.0-0.2); #Eosinphils 0.4 thou/uL (0.0-0.7); #Lymphocytes 3.6 thou/uL (1.20-3.40); #Monocytes 0.9 thou/uL (0.11-0.59); %Basophils 0.5 % (0.0-1.0); %Lymphocytes 27.4 % (21.0-51.0); %Monocytes 7.2 % (0.0-10.0); %Neutrophils 61.8 % (42.0-75.0); Hemoglobin 14.9 g/dL (14.0-18.0); Mean Corpuscular HGB CONC 33.3 g/dL (32.0-36.0); Mean Corpuscular Volume 87.1 fL (78.0-98.0); Mean Platelet Volume 8.4 fL (7.4-10.4); Platelet Count 258 thou/uL (130-400); RBC Distribution Width 12.1 % (11.5-14.5); Red Blood Cell (RBC) Count 5.13 mill/uL (4.70-6.10)
[2019-02-19 06:03] LABS: Anion Gap 11 mmol/L (10-20); BUN (Urea Nitrogen) 11 mg/dL (8.9-20.6); Calc. Creatinine Clearance 282 mL/min (70-130); Carbon Dioxide 25 mmol/L (22-29); Chloride 105 mmol/L (98-107); Estimated GFR-MDRD Greater than 90; Glucose 158 mg/dL (70-105); Potassium 3.9 mmol/L (3.5-5.1); Sodium 137 mmol/L (136-145)
[2019-02-19] MEDS: Sodium Chloride 0.9% 1,000 ML IV SCH (06:35)
[2019-02-19] MEDS: HumaLOG 300 UNITS/3 ML VIAL SC PRN (06:37)
[2019-02-19] MEDS: Enoxaparin Sodium 40 MG/0.4 ML SYRINGE SC SCH (08:05)
[2019-02-19] MEDS: Morphine 2 MG/ML SYRINGE SLOW IVP PRN ×5 (08:05→23:34)
[2019-02-19] MEDS ORDERED: Acetaminophen/Codeine 30-300mg Tablet PO PRN (09:48)
[2019-02-19] MEDS ORDERED: Ketorolac Tromethamine 30 MG/ML VIAL IVP PRN (09:49)
[2019-02-19] MEDS ORDERED: traMADol HCl 50 MG TAB PO PRN ×2 (09:49)
--- NOTE | 2019-02-19 17:10 | PDOC.HOSPP ---
- Subjective Encounter Date: 02/19/19 Encounter Time: 07:00 Subjective: Pt seen for followup re: acute pancreatitis. Feels slightly better. nausea+, no vomiting. Hungry. - Objective Vital Signs & Weight: Vital Signs (12 hours) Temp Pulse Resp BP BP Pulse Ox 02/19/19 15:45 98.0 F 67 12 112/66 97 02/19/19 11:52 98.0 F 84 20 139/71 02/19/19 08:03 97.7 F 76 20 128/81 96 02/19/19 06:37 98.0 F 73 18 119/69 94 L Weight Weight 355 lb 12.864 oz I&O: 02/18/19 02/19/19 02/20/19 06:59 06:59 06:59 Intake Total 1003 Balance 1003 Result Diagrams: 02/19/19 05:31 02/19/19 05:31 Additional Labs: Accuchecks 02/19/19 02/19/19 02/19/19 16:16 10:50 06:33 POC Glucose 147 H 149 H 152 H 02/18/19 20:12 POC Glucose 137 H Labs and MARs reviewed by ROS - Review of Systems Cardiovascular: denies: chest pain, palpitations, orthopnea, paroxysmal noc. dyspnea, edema, light headedness, other Gastrointestinal: reports: nausea, abdominal pain. denies: vomitting, diarrhea , constipation, melena, hematochezia - Medication Medications: Active Medications Generic Name Dose Route Start Last Admin Trade Name Freq PRN Reason Stop Dose Admin Enoxaparin Sodium 40 mg 02/19/19 09:00 02/19/19 08:05 Lovenox SC 40 mg 0900 SVETLANA Administration Insulin Human Lispro 0 units 02/18/19 18:45 02/19/19 06:37 Humalog SC 2 unit .MILD SLIDING SCALE PRN Administration Mild Correctional Scale Morphine Sulfate 2 mg 02/19/19 07:21 02/19/19 15:58 Morphine SLOW IVP 2 mg Q2H PRN Administration Severe Pain (7-10) Nicotine 14 mg 02/18/19 21:00 02/18/19 20:30 Nicoderm Patch TD Not Given Q24HR SVETLANA Sodium Chloride 10 ml 02/19/19 09:00 02/19/19 08:08 Flush - Normal Saline IVF Not Given Q12HR SVETLANA - Exam General - other findings: Morbid obesity Eye: anicteric sclera ENT: normocephalic atraumatic, moist mucosa Neck: supple, no thyromegaly Heart: RRR, no rubs Respiratory: no wheezes, no rales Gastrointestinal: soft, normal bowel sounds Gastrointestinal - other findings: distended, mild epigastric tenderness, no guarding or rigidity Skin: normal turgor Neurological: no weakness Musculoskeletal: normal strength Psychiatric: normal affect, normal behavior Hosp A/P (1) Acute pancreatitis Code(s): K85.90 - ACUTE PANCREATITIS WITHOUT NECROSIS OR INFECTION, UNSP Status: Acute (2) DM type 2 (diabetes mellitus, type 2) Status: Chronic Qualifiers: 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 Start clear fluids, advance as tolerated. Monitor vital signs, tiotrate antihypertensives as needed. BP controlled at this time. Reasonable control of blood sugars.
[2019-02-19] MEDS: Nicotine 14 MG PATCH TD SCH (21:06)
[2019-02-20] MEDS: Morphine 2 MG/ML SYRINGE SLOW IVP PRN (03:40)
[2019-02-20 05:56] LABS: #Basophils 0.1 thou/uL (0.0-0.2); #Eosinphils 0.4 thou/uL (0.0-0.7); #Lymphocytes 3.4 thou/uL (1.20-3.40); #Monocytes 0.7 thou/uL (0.11-0.59); #Neutrophils 6.4 thou/uL (1.40-6.50); %Basophils 0.6 % (0.0-1.0); %Eosinophils 4.1 % (0.0-10.0); %Lymphocytes 30.7 % (21.0-51.0); %Monocytes 6.3 % (0.0-10.0); %Neutrophils 58.3 % (42.0-75.0); Hemoglobin 14.7 g/dL (14.0-18.0); Mean Corpuscular HGB CONC 33.6 g/dL (32.0-36.0); Mean Corpuscular Hemoglobin 28.9 pg (27.0-31.0); Mean Corpuscular Volume 86.1 fL (78.0-98.0); Mean Platelet Volume 8.3 fL (7.4-10.4); Platelet Count 251 thou/uL (130-400)
[2019-02-20 06:20] LABS: Anion Gap 11 mmol/L (10-20); BUN (Urea Nitrogen) 12 mg/dL (8.9-20.6); Calc. Creatinine Clearance 313 mL/min (70-130); Calcium 8.5 mg/dL (7.8-10.44); Carbon Dioxide 23 mmol/L (22-29); Chloride 105 mmol/L (98-107); Estimated GFR-MDRD Greater than 90; Glucose 127 mg/dL (70-105); Lipase 88 U/L (8-78); Potassium 3.8 mmol/L (3.5-5.1); Sodium 135 mmol/L (136-145)
[2019-02-20] MEDS: Enoxaparin Sodium 40 MG/0.4 ML SYRINGE SC SCH (09:36)
[2019-02-20] MEDS: Acetaminophen/Codeine 30-300mg Tablet PO PRN (09:39)
[2019-02-20] MEDS: HumaLOG 300 UNITS/3 ML VIAL SC PRN ×3 (11:22→21:40)
--- NOTE | 2019-02-20 14:31 | PDOC.HOSPP ---
- Subjective Encounter Date: 02/20/19 Encounter Time: 07:40 Subjective: Pt seen for followup re: acute pancreatitis. Feels better. - Objective Vital Signs & Weight: Vital Signs (12 hours) Temp Pulse Resp BP Pulse Ox 02/20/19 11:47 97.9 F 63 20 125/67 02/20/19 08:13 97.8 F 69 20 132/77 02/20/19 03:32 97.9 F 68 16 104/51 L 97 Weight Weight 355 lb 12.864 oz I&O: 02/19/19 02/20/19 02/21/19 06:59 06:59 06:59 Intake Total 1003 3566 Balance 1003 3566 Result Diagrams: 02/20/19 05:32 02/20/19 05:32 Additional Labs: Accuchecks 02/20/19 02/20/19 02/19/19 10:56 06:07 20:10 POC Glucose 189 H 121 H 148 H 02/19/19 16:16 POC Glucose 147 H Labs and MARs reviewed by ROS - Review of Systems Cardiovascular: denies: chest pain, palpitations, orthopnea, paroxysmal noc. dyspnea, edema, light headedness Gastrointestinal: reports: nausea, abdominal pain. denies: vomitting, diarrhea , constipation, melena, hematochezia - Medication Medications: Active Medications Generic Name Dose Route Start Last Admin Trade Name Freq PRN Reason Stop Dose Admin Acetaminophen/Codeine Phosphate 2 tab 02/19/19 09:48 02/20/19 09:39 Tylenol #3 PO 2 tab Q6H PRN Administration Severe Pain (7-10) Enoxaparin Sodium 40 mg 02/19/19 09:00 02/20/19 09:36 Lovenox SC 40 mg 0900 SVETLANA Administration Insulin Human Lispro 0 units 02/18/19 18:45 02/20/19 11:22 Humalog SC 2 unit .MILD SLIDING SCALE PRN Administration Mild Correctional Scale Morphine Sulfate 2 mg 02/19/19 07:21 02/20/19 03:40 Morphine SLOW IVP 2 mg Q2H PRN Administration Severe Pain (7-10) Nicotine 14 mg 02/18/19 21:00 02/19/19 21:06 Nicoderm Patch TD Not Given Q24HR [facility] Sodium Chloride 10 ml 02/19/19 09:00 02/20/19 09:40 Flush - Normal Saline IVF Not Given Q12HR SVETLANA - Exam General - other findings: Morbid obesity Eye: anicteric sclera ENT: normocephalic atraumatic, no oropharyngeal lesions, moist mucosa Neck: no thyromegaly, no lymphadenopathy Heart: RRR, no rubs, normal peripheral pulses Respiratory: CTAB Gastrointestinal: soft, non-tender, normal bowel sounds Gastrointestinal - other findings: distended Extremities: no clubbing Skin: normal turgor Neurological: no weakness Musculoskeletal: normal strength Psychiatric: normal affect, normal behavior Hosp A/P (1) Acute pancreatitis Code(s): K85.90 - ACUTE PANCREATITIS WITHOUT NECROSIS OR INFECTION, UNSP Status: Acute (2) DM type 2 (diabetes mellitus, type 2) Status: Chronic Qualifiers: Diabetes mellitus residential insulin use: without residential use Diabetes mellitus complication status: without complication Qualified Code(s): E11.9 - Type 2 diabetes mellitus without complications (3) Dyslipidemia Code(s): E78.5 - HYPERLIPIDEMIA, UNSPECIFIED Status: Chronic (4) Hypertension Code(s): I10 - ESSENTIAL (PRIMARY) HYPERTENSION Status: Chronic - Plan out of bed/ambulate Significantly improved. Advance diet as tolerated. BP controlled. Reasonable control of blood sugars. Likely home in 24 hours.
[2019-02-20] MEDS: Nicotine 14 MG PATCH TD SCH (21:24)
[2019-02-21 04:19] LABS: #Basophils 0.1 thou/uL (0.0-0.2); #Eosinphils 0.4 thou/uL (0.0-0.7); #Monocytes 0.9 thou/uL (0.11-0.59); #Neutrophils 7.2 thou/uL (1.40-6.50); %Basophils 0.9 % (0.0-1.0); %Eosinophils 3.3 % (0.0-10.0); %Lymphocytes 25.9 % (21.0-51.0); %Neutrophils 61.9 % (42.0-75.0); Hemoglobin 15.4 g/dL (14.0-18.0); Mean Corpuscular Hemoglobin 29.3 pg (27.0-31.0); Mean Corpuscular Volume 85.9 fL (78.0-98.0); Mean Platelet Volume 8.9 fL (7.4-10.4); Platelet Count 266 thou/uL (130-400); RBC Distribution Width 11.9 % (11.5-14.5); Red Blood Cell (RBC) Count 5.25 mill/uL (4.70-6.10); White Blood Cell (WBC) Count 11.6 thou/uL (4.8-10.8)
[2019-02-21 04:42] LABS: Anion Gap 15 mmol/L (10-20); BUN (Urea Nitrogen) 11 mg/dL (8.9-20.6); Calc. Creatinine Clearance 293 mL/min (70-130); Calcium 9.3 mg/dL (7.8-10.44); Carbon Dioxide 21 mmol/L (22-29); Chloride 104 mmol/L (98-107); Estimated GFR-MDRD Greater than 90; Glucose 184 mg/dL (70-105); Lipase 74 U/L (8-78); Potassium 3.7 mmol/L (3.5-5.1); Sodium 136 mmol/L (136-145)
[2019-02-21] MEDS: Acetaminophen/Codeine 30-300mg Tablet PO PRN (06:16)
[2019-02-21] MEDS: HumaLOG 300 UNITS/3 ML VIAL SC PRN ×2 (06:24→12:08)
[2019-02-21] MEDS: Enoxaparin Sodium 40 MG/0.4 ML SYRINGE SC SCH (09:17)
[2019-02-21 11:03] VITALS: BP 106/69; TEMP 97.4
--- NOTE | 2019-02-21 21:11 | DIS ---
DATE OF ADMISSION: 02/18/2019 DATE OF DISCHARGE: 02/21/2019 PRIMARY CARE PROVIDER: Esther Patino MD DISCHARGE DIAGNOSES: 1. Acute pancreatitis. 2. Morbid obesity. CONDITION OF PATIENT ON THE DAY OF DISCHARGE: Stable. I assessed Mr. Miramontes on the day of discharge. He denies any chest pain or shortness of breath. Vital signs are stable. S1 and S2 are heard, regular. Lungs are clear to auscultation bilaterally. DISCHARGE MEDICATIONS: In addition to his pre-admission home medications as dictated in my history and physical note dated February 18, 2019, he is being discharged home on tramadol 50 mg every 6 hours as needed, 20 doses to be dispensed. FOLLOWUP APPOINTMENTS: The patient is advised to follow up with his primary care provider and logging tractor operator swamp as outpatient. HOSPITAL COURSE: Mr. Miramontes is a pleasant 38-year-old gentleman, who was admitted to [facility] on February 18, 2019, for acute pancreatitis. He was managed with intravenous fluids and pain medications. His lipase improved and eventually normalized. He is tolerating diet on the day of discharge. He will discuss with his logging tractor operator swamp whether the episode of acute pancreatitis was secondary to use of Jardiance. On the day [place], [place] [id number], hemoglobin 15.4, platelet count 266,000, sodium 136, potassium 3.7, and creatinine 0.78. Lipase is normal at 74. Many thanks for allowing me to participate in your patient's care. Please feel free to contact me with any questions or concerns. DISCHARGE DESTINATION: Home. TIME SPENT: Total amount of time spent coordinating this discharge: 20 minutes. Job ID: [id number]
--- NOTE | 2019-02-23 05:25 | PQF ---
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 Clinical indicators are provided on the bottom of this form for your review Please check appropriate box(s): [ x ] Hyponatremia please specify etiology, if known Etiology unknown [ ] Hyponatremia due to SIADH (Syndrome of Inappropriate Secretion of Antidiuretic Hormone) [ ] Other diagnosis [ ] Unable to determine In addition, please specify: Present on Admission (POA): [ X ] Yes [ ] No [ ] Unable to determine CLINICAL INDICATORS - SIGNS / SYMPTOMS / LABS He reports nausea and vomiting - Documented in H&P on 02/18/19 by DEA MAE MD Sodium 135 on 02/20 - Documented in H&P on 02/18/19 by DEA MAE MD Sodium 136 on 02/21 - Documented in Laboratory result RISK FACTORS DM - Documented in H&P on 02/18/19 by DEA MAE MD Acute pancreatitis - Documented in H&P on 02/18/19 by DEA MAE MD Morbid obesity - Documented in Discharge summary on 02/21/19 by DEA MAE MD TREATMENTS: we will provide IV hydration - Documented in H&P on 02/18/19 by DEA MAE MD Sodium chloride 0.9% 1,000 ml IV - Documented in Medication list (This form is maintained as a part of the permanent medical record) 2014 [employer] All Rights Reserved [email or web address] [not provided] MTDD
== END 2019-02-21 13:51 | disposition home or self-care (01) | DRG 439 ==
LOC: ERS 11:02 → ERHOLD 13:41 → 3SE 17:30 → SURG A 02-20 20:24
PROVIDERS: ADMIT Internal Medicine; ATTEND Internal Medicine
DX: K85.90 Acute pancreatitis without necrosis or infection, unspecified (principal); E87.1 Hypo-osmolality and hyponatremia; E66.01 Morbid (severe) obesity due to excess calories; E11.9 Type 2 diabetes mellitus without complications; I10 Essential (primary) hypertension; E78.00 Pure hypercholesterolemia, unspecified; F17.210 Nicotine dependence, cigarettes, uncomplicated; F17.220 Nicotine dependence, chewing tobacco, uncomplicated; Z79.84 Long term (current) use of oral hypoglycemic drugs; Z79.899 Other long term (current) drug therapy
CPT/HCPCS: 36415; 36416; 80048; 80053; 81003; 83690; 85025; 94760; 96361; 96374; 96375; J1650; J2270; J2405

== ENCOUNTER 2020-05-04 18:28 | Inpatient (IN) | payer OTHER ==
[2020-05-04] MEDS ORDERED: Vancomycin 1 GM/200 ML BAG ONE (19:04)
[2020-05-04] MEDS ORDERED: Piperacillin/Tazobactam 3.375 GM VIAL ONE (19:04)
[2020-05-04 19:15] LABS: #Basophils 0.1 thou/uL (0.0-0.2); #Eosinphils 0.5 thou/uL (0.0-0.7); #Lymphocytes 5.2 thou/uL (1.20-3.40); #Monocytes 1.1 thou/uL (0.11-0.59); #Neutrophils 8.9 thou/uL (1.40-6.50); %Basophils 0.8 % (0.0-1.0); %Eosinophils 3.3 % (0.0-10.0); %Lymphocytes 32.9 % (21.0-51.0); %Monocytes 6.9 % (0.0-10.0); %Neutrophils 56.1 % (42.0-75.0); Hemoglobin 16.8 g/dL (14.0-18.0); Mean Corpuscular HGB CONC 35.5 g/dL (32.0-36.0); Mean Corpuscular Hemoglobin 30.7 pg (27.0-31.0); Mean Corpuscular Volume 86.3 fL (78.0-98.0); Mean Platelet Volume 9.2 fL (7.4-10.4); Platelet Count 287 thou/uL (130-400); RBC Distribution Width 11.9 % (11.5-14.5); Red Blood Cell (RBC) Count 5.48 mill/uL (4.70-6.10); White Blood Cell (WBC) Count 15.9 thou/uL (4.8-10.8)
[2020-05-04 19:35] LABS: ALT (SGPT) 30 U/L (8-55); AST (SGOT) 18 U/L (5-34); Albumin 3.9 g/dL (3.5-5.0); Alkaline Phosphatase 80 U/L (40-110); Anion Gap 15 mmol/L (10-20); BUN (Urea Nitrogen) 13 mg/dL (8.9-20.6); Bilirubin, Total 0.5 mg/dL (0.2-1.2); Calc. Creatinine Clearance 0 mL/min (70-130); Calcium 9.6 mg/dL (7.8-10.44); Carbon Dioxide 21 mmol/L (22-29); Chloride 103 mmol/L (98-107); Estimated GFR-MDRD 75; Globulin 3.4 g/dL (2.4-3.5); Glucose 315 mg/dL (70-105); Potassium 4.2 mmol/L (3.5-5.1); Protein, Total 7.3 g/dL (6.0-8.3); Sodium 135 mmol/L (136-145)
[2020-05-04] MEDS ORDERED: Acetaminophen 325 MG TAB PO PRN (21:04)
[2020-05-04] MEDS ORDERED: HYDROcodone/Acetaminophen 5/325 mg Tablet PO PRN (21:04)
[2020-05-04] MEDS ORDERED: Ondansetron ODT 4 MG TAB PO PRN (21:04)
[2020-05-04] MEDS ORDERED: Ondansetron PF 4 MG/2 ML Vial IVP PRN (21:04)
[2020-05-04] MEDS ORDERED: Acetaminophen 650 MG Suppository PR PRN (21:04)
[2020-05-04] MEDS ORDERED: Calcium Carbonate 500 MG ChewTAB PO PRN (21:04)
--- NOTE | 2020-05-04 21:14 | PDOC.HHP ---
Hospitalist HPI - History of Present Illness cellulitis History of Present Illness: Case of an 39y/o male with pmhx of htn, hypercholesterolemia and DMt2 who comes to hospital due to L groin cellulites. patient refers he was on his usual state of health until a few days ago when he noted a boil that got infected. he went to [place] ED where it was drain and patient was discharge on bactrim. he states he hsa been taken the medicatio but infection has worsen considerable. patient refers his area of erythema has progress up to his abdomen has become more painful 8/10 with purulent secretion. patient denies any fever chills nausea or vomiting. patient stated this happened 2 months ago on other leg and was diagnosed with MRSA Hospitalist ROS - Review of Systems All other systems reviewed; all pertinent +/- noted in HPI/Subj Hospitalist History - Past Medical History Source: patient - Past Surgical History Past Surgical History: reports: no pertinent history - Family History Family History: reports: cardiac disorder - Social History Smoking Status: Current every day smoker Alcohol: reports: Occassional Drugs: reports: none Living Situation: With Family - Exam Eye: PERRL, anicteric sclera ENT: normocephalic atraumatic, no oropharyngeal lesions Neck: supple, symmetric, no JVD Heart: RRR, no murmur, no gallops Respiratory: CTAB, no wheezes, no rales Gastrointestinal: soft, non-tender, non-distended, normal bowel sounds Gastrointestinal - other findings: L groin area with area with extensive erythema from groin to abdomen tender Extremities: no cyanosis, no edema Skin: normal turgor, no lesions, no rashes Neurological: cranial nerve grossly intact, normal sensation to touch Musculoskeletal: normal tone, normal strength, no muscle wasting Psychiatric: normal affect, normal behavior, A&O x 3 Hospitalist Results - Labs Result Diagrams: 05/04/20 19:02 05/04/20 19:02 Lab results: WBC 15.9 thou/uL (4.8-10.8) H 05/04/20 19: Hgb 16.8 g/dL (14.0-18.0) 05/04/20 19: Hct 47.3 % (42.0-52.0) 05/04/20 19: MCV 86.3 fL (78.0-98.0) 05/04/20 19:02 Plt Count 287 thou/uL (130-400) 05/04/20 19:02 Neutrophils % 56.1 % (42.0-75.0) 05/04/20 19:02 Sodium 135 mmol/L (136-145) L 05/04/20 19:02 Potassium 4.2 mmol/L (3.5-5.1) 05/04/20 19:02 Chloride 103 mmol/L (98-107) 05/04/20 19:02 Carbon Dioxide 21 mmol/L (22-29) L 05/04/20 19:02 BUN 13 mg/dL (8.9-20.6) 05/04/20 19:02 Creatinine 1.09 mg/dL (0.7-1.3) 05/04/20 19:02 Glucose 315 mg/dL (70-105) H 05/04/20 19:02 Lactic Acid 1.1 mmol/L (0.5-2.2) 05/04/20 19:02 Calcium 9.6 mg/dL (7.8-10.44) 05/04/20 19:02 Total Bilirubin 0.5 mg/dL (0.2-1.2) 05/04/20 19:02 AST 18 U/L (5-34) 05/04/20 19:02 ALT 30 U/L (8-55) 05/04/20 19:02 Alkaline Phosphatase 80 U/L (40-110) 05/04/20 19:02 Serum Total Protein 7.3 g/dL (6.0-8.3) 05/04/20 19:02 Albumin 3.9 g/dL (3.5-5.0) 05/04/20 19:02 Hospitalist H&P A/P - Problem (1) Cellulitis of left groin Code(s): L03.314 - CELLULITIS OF GROIN Status: Acute (2) DM type 2 (diabetes mellitus, type 2) Status: Chronic Qualifiers: Diabetes mellitus alf insulin use: without alf use Diabetes mellitus complication status: without complication Qualified Code(s): E11.9 - Type 2 diabetes mellitus without complications (3) Dyslipidemia Code(s): E78.5 - HYPERLIPIDEMIA, UNSPECIFIED Status: Chronic (4) Hypertension Code(s): I10 - ESSENTIAL (PRIMARY) HYPERTENSION Status: Chronic - Plan Plan: Case of an 39y/o male with the stated pmhx who present to the hospital with a l groin cellulites after a bedside I/D. L groin cellulitis - increased WBC at 16 - extensive cellulitis - previous MRSA cellulitis, 2m/a - starteing zosyn + vanc - f/u cultures - wound care consulted - failed outpt therapy w bactrim htn - continue home meds DMt2 - acc + ss hld - continue statin
[2020-05-04] MEDS ORDERED: Dextrose 50% Abboject 50 ML SYRINGE SLOW IVP PRN (21:25)
[2020-05-04] MEDS ORDERED: Dextrose 5% in Water 1,000 ML IV PRN (21:25)
[2020-05-04] MEDS ORDERED: Vancomycin 1 GM in Premix Bag 1 BAG IVPB SCH (23:15)
[2020-05-04] MEDS: HYDROcodone/Acetaminophen 5/325 mg Tablet PO PRN (23:21)
[2020-05-04] MEDS: Sodium Chloride 0.9% 1,000 ML IV SCH (23:22)
[2020-05-05 00:12] VITALS: BMI 44.5
[2020-05-05] MEDS: Piperacillin/Tazobactam 3.375 GM in Sodium Chloride 0.9% 100 ML IVPB SCH ×4 (00:53→18:05)
[2020-05-05 04:11] LABS: ALT (SGPT) 30 U/L (8-55); AST (SGOT) 16 U/L (5-34); Albumin 3.5 g/dL (3.5-5.0); Alkaline Phosphatase 71 U/L (40-110); Anion Gap 13 mmol/L (10-20); BUN (Urea Nitrogen) 12 mg/dL (8.9-20.6); Bilirubin, Total 0.4 mg/dL (0.2-1.2); Calc. Creatinine Clearance 213 mL/min (70-130); Carbon Dioxide 23 mmol/L (22-29); Chloride 105 mmol/L (98-107); Estimated GFR-MDRD 85; Globulin 2.8 g/dL (2.4-3.5); Glucose 225 mg/dL (70-105); Potassium 3.6 mmol/L (3.5-5.1); Protein, Total 6.3 g/dL (6.0-8.3); Sodium 137 mmol/L (136-145)
[2020-05-05 04:37] LABS: Band 6 % (5-11); Eosinophils 5 % (0-10); Hemoglobin 15.4 g/dL (14.0-18.0); Lymphocytes 44 % (21-51); MDiff Complete? YES; Mean Corpuscular HGB CONC 33.5 g/dL (32.0-36.0); Mean Corpuscular Hemoglobin 29.1 pg (27.0-31.0); Mean Corpuscular Volume 86.8 fL (78.0-98.0); Mean Platelet Volume 9.3 fL (7.4-10.4); Monocytes 3 % (0-10); Neutrophil 42 % (42-75); Platelet Count 254 thou/uL (130-400); Red Blood Cell (RBC) Count 5.29 mill/uL (4.70-6.10); White Blood Cell (WBC) Count 11.7 thou/uL (4.8-10.8)
[2020-05-05] MEDS: HumaLOG 300 UNITS/3 ML VIAL SC PRN ×3 (06:33→15:50)
[2020-05-05] MEDS: Sodium Chloride 0.9% 1,000 ML IV SCH ×2 (06:33→17:47)
[2020-05-05] MEDS: Enoxaparin Sodium 40 MG/0.4 ML SYRINGE SC SCH (09:37)
--- NOTE | 2020-05-05 17:20 | PDOC.HOSPP ---
- Subjective Encounter Date: 05/05/20 Subjective: Patient says he is feeling generally better. Has less pain. Feels less hot and feels like he is getting better. - Objective Vital Signs & Weight: Vital Signs (12 hours) Temp Pulse Resp BP Pulse Ox 05/05/20 11:39 97.9 F 66 20 122/59 L 97 05/05/20 09:06 97.8 F 70 20 115/64 98 Weight Admit Weight 328 lb 3.2 oz Weight 328 lb 3.2 oz I&O: 05/04/20 05/05/20 05/06/20 06:59 06:59 06:59 Intake Total 1300 2049 Balance 1300 2049 Result Diagrams: 05/05/20 03:31 05/05/20 03:31 Additional Labs: Accuchecks 05/05/20 05/05/20 15:33 06:18 POC Glucose 277 H 186 H Hospitalist ROS - Medication Medications: Active Medications Generic Name Dose Route Start Last Admin Trade Name Freq PRN Reason Stop Dose Admin Hydrocodone Bitart/Acetaminophen 2 tab 05/04/20 21:04 05/04/20 23:21 Hydrocodone/Acetaminophen 5/325 Mg Tablet PO 2 tab Q4H PRN Administration Severe Pain (7-10) Enoxaparin Sodium 40 mg 05/05/20 09:00 05/05/20 09:37 Enoxaparin Sodium 40 Mg/0.4 Ml Syringe SC 40 mg 0900 SVETLANA Administration Sodium Chloride 1,000 mls @ 100 mls/hr 05/04/20 21:15 05/05/20 06:33 Normal Saline 0.9% IV 1,000 mls .Q10H SVETLANA Administration Piperacillin Sod/Tazobactam 100 mls @ 200 mls/hr 05/04/20 23:59 05/05/20 13:17 Sod 3.375 gm/ Sodium Chloride IVPB 100 mls Q6HR SVETLANA Administration Vancomycin HCl 2 gm/ Sodium 500 mls @ 250 mls/hr 05/05/20 09:00 05/05/20 09:37 Chloride IVPB 500 mls 0900,2100 SVETLANA Administration Insulin Human Lispro 0 units 05/04/20 21:25 05/05/20 15:50 Humalog 300 Units/3 Ml Vial SC 277 units .MILD SLIDING SCALE PRN Administration Mild Correctional Scale - Exam General Appearance: NAD, awake alert General - other findings: Morbidly obese Heart: RRR, no murmur, no gallops, no rubs, normal peripheral pulses Respiratory: CTAB, no wheezes, no rales, no ronchi, normal chest expansion, no tachypnea, normal percussion Gastrointestinal: soft, non-tender, non-distended, normal bowel sounds, no palpable masses, no hepatomegaly, no splenomegaly, no bruit Extremities: no cyanosis, no clubbing, no edema Skin - other findings: Skin the pelvis has no erythema. Genitals normal. Intertrigo. Musculoskeletal: normal tone, normal strength, no muscle wasting Psychiatric: normal affect, normal behavior, A&O x 3 Hosp A/P (1) Cellulitis of left groin Code(s): L03.314 - CELLULITIS OF GROIN Status: Acute (2) Morbid obesity Code(s): E66.01 - MORBID (SEVERE) OBESITY DUE TO EXCESS CALORIES Status: Acute (3) Intertrigo Code(s): L30.4 - ERYTHEMA INTERTRIGO Status: Acute (4) DM type 2 (diabetes mellitus, type 2) Status: Chronic Qualifiers: Diabetes mellitus termite control representative insulin use: without termite control representative use Diabetes mellitus complication status: without complication Qualified Code(s): E11.9 - Type 2 diabetes mellitus without complications (5) Dyslipidemia Code(s): E78.5 - HYPERLIPIDEMIA, UNSPECIFIED Status: Chronic (6) Hypertension Code(s): I10 - ESSENTIAL (PRIMARY) HYPERTENSION Status: Chronic - Plan /39-year-old male who presented via the emergency department. Patient has morbid obesity and diabetes. He had an abscess arise in his groin area. He was initially seen as an outpatient and had an incision and drainage in the emergency department. He subsequently was placed on p.o. antibiotics but had a fairly abrupt development of erythema over the pelvic area. He was admitted for cellulitis. Cellulitis: Patient appears to be substantially better already. He will continue on the IV antibiotics today. If he continues to do this well will likely be able to transition over to p.o. meds tomorrow. Intertrigo: We will order some nystatin powder. Diabetes mellitus: We will resume his home medications with glipizide and Jardiance. Blood sugars running a bit high today. Hypertension: Blood pressure is actually a bit on the low side. We will hold the lisinopril for now.
[2020-05-05] MEDS ORDERED: HumaLOG 300 UNITS/3 ML VIAL SC PRN (21:51)
[2020-05-05] MEDS: Insulin Glargine 10 UNITS in Pre-Filled Syringe 1 EACH SC SCH (22:07)
[2020-05-05] MEDS: Lisinopril 20 MG TAB PO SCH (22:08)
[2020-05-05] MEDS: Simvastatin 5 MG TAB PO SCH (22:08)
[2020-05-05] MEDS: HYDROcodone/Acetaminophen 5/325 mg Tablet PO PRN (23:16)
[2020-05-06] MEDS: Piperacillin/Tazobactam 3.375 GM in Sodium Chloride 0.9% 100 ML IVPB SCH (03:19)
[2020-05-06] MEDS ORDERED: Piperacillin/Tazobactam 3.375 GM in Sodium Chloride 0.9% 100 ML IVPB SCH ×2 (05:00→12:00)
[2020-05-06] MEDS: HumaLOG 300 UNITS/3 ML VIAL SC PRN (06:24)
[2020-05-06] MEDS: Sodium Chloride 0.9% 1,000 ML IV SCH ×2 (06:24→14:46)
[2020-05-06 08:22] LABS: Vancomycin, Trough 12.2 ug/mL
[2020-05-06] MEDS: metFORMIN 500 MG TAB PO SCH ×2 (09:05→16:33)
[2020-05-06] MEDS: Empagliflozin 10 MG TAB PO SCH (09:06)
[2020-05-06] MEDS: Enoxaparin Sodium 40 MG/0.4 ML SYRINGE SC SCH (09:06)
[2020-05-06] MEDS: glipiZIDE 10 MG TAB PO SCH ×2 (09:06→16:33)
[2020-05-06] MEDS ORDERED: Vancomycin HCl 1.75 GM in Sodium Chloride 0.9% 500 ML IVPB SCH (10:00)
--- NOTE | 2020-05-06 16:26 | PDOC.HOSPP ---
- Subjective Encounter Date: 05/06/20 Encounter Time: 10:40 Subjective: Patient seen for follow-up regarding groin cellulitis. Reports feeling better. - Objective Vital Signs & Weight: Vital Signs (12 hours) Temp Pulse Resp BP Pulse Ox 05/06/20 07:39 97.6 F 63 18 117/66 97 Weight Admit Weight 328 lb 3.2 oz Weight 328 lb 3.2 oz I&O: 05/05/20 05/06/20 05/07/20 06:59 06:59 06:59 Intake Total 1300 4930 600 Balance 1300 4930 600 Result Diagrams: 05/05/20 03:31 05/05/20 03:31 Additional Labs: Accuchecks 05/06/20 05/06/20 05/05/20 11:55 05:14 20:29 POC Glucose 85 176 H 248 H Labs and MAR reviewed by ok Hospitalist ROS - Review of Systems Cardiovascular: denies: chest pain, palpitations, orthopnea, paroxysmal noc. dyspnea, edema, light headedness Gastrointestinal: denies: nausea, vomiting, abdominal pain, diarrhea, constipation, melena, hematochezia Skin: reports: rash - Medication Medications: Active Medications Generic Name Dose Route Start Last Admin Trade Name Freq PRN Reason Stop Dose Admin Hydrocodone Bitart/Acetaminophen 2 tab 05/04/20 21:04 05/05/20 23:16 Hydrocodone/Acetaminophen 5/325 Mg Tablet PO 2 tab Q4H PRN Administration Severe Pain (7-10) Enoxaparin Sodium 40 mg 05/05/20 09:00 05/06/20 09:06 Enoxaparin Sodium 40 Mg/0.4 Ml Syringe SC 40 mg 0900 SVETLANA Administration Glipizide 10 mg 05/06/20 07:30 05/06/20 09:06 Glipizide 10 Mg Tab PO 10 mg BID-AC SVETLANA Administration Sodium Chloride 1,000 mls @ 100 mls/hr 05/04/20 21:15 05/06/20 14:46 Normal Saline 0.9% IV Not Given .Q10H SVETLANA Insulin Glargine 10 units/ 0.1 mls @ 0 mls/hr 05/05/20 21:00 05/05/20 22:07 Miscellaneous Medication SC 0.1 mls HS SVETLANA Administration Insulin Human Lispro 0 units 05/04/20 21:25 05/06/20 06:24 Humalog 300 Units/3 Ml Vial SC 2 units .MILD SLIDING SCALE PRN Administration Mild Correctional Scale Insulin Human Lispro 0 units 05/05/20 21:51 05/05/20 22:08 Humalog 300 Units/3 Ml Vial SC 2 units .BEDTIME SLIDING SC PRN Administration Bedtime Correctional Scale Lisinopril 20 mg 05/05/20 21:00 05/05/20 22:08 Lisinopril 20 Mg Tab PO 20 mg HS SVETLANA Administration Metformin HCl 1,000 mg 05/06/20 08:00 05/06/20 09:05 Metformin 500 Mg Tab PO 1,000 mg BID-WM SVETLANA Administration Miscellaneous Medication 10 mg 05/06/20 09:00 05/06/20 09:06 Empagliflozin 10 Mg Tab PO 10 mg QAM SVETLANA Administration Simvastatin 5 mg 05/05/20 21:00 05/05/20 22:08 Simvastatin 5 Mg Tab PO 5 mg HS SVETLANA Administration - Exam General - other findings: Morbid obesity Eye: anicteric sclera ENT: moist mucosa Neck: supple Heart: RRR Respiratory: CTAB Gastrointestinal: soft, non-tender Skin - other findings: Groin cellulitis Psychiatric: normal affect Hosp A/P (1) Cellulitis of left groin Code(s): L03.314 - CELLULITIS OF GROIN Status: Acute (2) DM type 2 (diabetes mellitus, type 2) Status: Chronic Qualifiers: Diabetes mellitus keno terminal operator insulin use: without keno terminal operator use Diabetes mellitus complication status: without complication Qualified Code(s): E11.9 - Type 2 diabetes mellitus without complications (3) Dyslipidemia Code(s): E78.5 - HYPERLIPIDEMIA, UNSPECIFIED Status: Chronic (4) Hypertension Code(s): I10 - ESSENTIAL (PRIMARY) HYPERTENSION Status: Chronic (5) Morbid obesity Code(s): E66.01 - MORBID (SEVERE) OBESITY DUE TO EXCESS CALORIES Status: Chronic - Plan Groin cellulitis: Discontinue Zosyn and vancomycin, start oral clindamycin. Diabetes mellitus type 2: Continue Accu-Cheks and insulin sliding scale. Morbid obesity: Stable.
[2020-05-06] MEDS: Clindamycin 150 MG CAP PO SCH (17:56)
[2020-05-06] MEDS: Insulin Glargine 10 UNITS in Pre-Filled Syringe 1 EACH SC SCH (20:39)
[2020-05-06] MEDS: Simvastatin 5 MG TAB PO SCH (20:40)
[2020-05-06] MEDS: Lisinopril 20 MG TAB PO SCH (20:42)
[2020-05-07] MEDS: Clindamycin 150 MG CAP PO SCH ×2 (00:09→05:57)
[2020-05-07] MEDS: Sodium Chloride 0.9% 1,000 ML IV SCH ×2 (00:10→08:39)
[2020-05-07 07:31] VITALS: BP 147/88; TEMP 98.4
[2020-05-07] MEDS: Enoxaparin Sodium 40 MG/0.4 ML SYRINGE SC SCH (08:32)
[2020-05-07] MEDS: metFORMIN 500 MG TAB PO SCH (08:35)
[2020-05-07] MEDS: glipiZIDE 10 MG TAB PO SCH (08:35)
[2020-05-07] MEDS: Empagliflozin 10 MG TAB PO SCH (08:35)
--- NOTE | 2020-05-07 09:35 | PDOC.DS.DS ---
Provider - Provider Date of Admission: 05/04/20 20:54 Date of Discharge: 05/07/20 Admitting Provider: Deng Castro Primary Care Physician: OUT OF TOWN Course - Hospital Course Hospital Course: Discharge diagnosis: 1. Left groin cellulitis 2. Morbid obesity Condition of patient on the day of discharge: Stable. Assessed the patient on the day of discharge. Denies any chest pain or shortness of breath. Vital signs are stable. S1 and S2 are heard, regular. Lungs are clear to auscultation bilaterally. Hospital course: Patient was admitted to the hospital on May 04, 2020 for left groin cellulitis. He was treated with intravenous Zosyn and intravenous vancomycin with improvement in his symptoms. He was seen by wound care service. He has been switched to oral antibiotics, clindamycin 300 mg every 6 hours for 10 more days. His home medications were resumed. Total amount of time spent coordinating this discharge: 31 minutes Resuscitation Status: 05/04/20 21:04 Resuscitation Status Routine Resuscitation Status: FULL: Full Resuscitation - Labs Lab Results: 05/05/20 03:31 05/05/20 03:31 Microbiology - Entire Visit 05/04/20 19:02 Venous blood - Left Arm Blood Culture - Preliminary NO GROWTH AT 48 HOURS 05/04/20 19:02 Venous blood - Right Arm Blood Culture - Preliminary NO GROWTH AT 48 HOURS - Physical Exam Vitals: Vital Signs (12 hours) Temp Pulse Resp BP Pulse Ox 05/07/20 07:30 98.4 F 76 18 147/88 H 96 Weight Admit Weight 328 lb 3.2 oz Weight 328 lb 3.2 oz Physical Exam: The patient was seen and examined on the day of discharge. Problem - Problem (1) Cellulitis of left groin Code(s): L03.314 - CELLULITIS OF GROIN Status: Acute (2) DM type 2 (diabetes mellitus, type 2) Status: Chronic Qualifiers: Diabetes mellitus senior care insulin use: without long term care phlebotomist use Diabetes mellitus complication status: without complication Qualified Code(s): E11.9 - Type 2 diabetes mellitus without complications (3) Dyslipidemia Code(s): E78.5 - HYPERLIPIDEMIA, UNSPECIFIED Status: Chronic (4) Hypertension Code(s): I10 - ESSENTIAL (PRIMARY) HYPERTENSION Status: Chronic (5) Morbid obesity Code(s): E66.01 - MORBID (SEVERE) OBESITY DUE TO EXCESS CALORIES Status: Chronic Plan - Discharge Medications Prescriptions: Clindamycin HCl 300 mg PO Q6H #40 capsule Home Medications: Medication Instructions Recorded Confirmed Type Lisinopril [Zestril] 20 mg PO HS 06/05/17 05/05/20 History Pravastatin Sodium [Pravachol] 10 mg PO HS 06/05/17 05/04/20 History metFORMIN HCl 1,000 mg PO BID-WM 06/05/17 05/04/20 History Empagliflozin [Jardiance] 10 mg PO QAM 02/18/19 05/04/20 History Naltrexone HCl/Bupropion HCl 1 tablet PO DAILY 05/04/20 05/05/20 History [Contrave ER] glipiZIDE [Glipizide] 10 mg PO BID 05/04/20 05/05/20 History Clindamycin HCl 300 mg PO Q6H #40 capsule 05/07/20 Rx Allergies: No Known Allergies Allergy (Verified 05/04/20 23:55) - Discharge Instructions Activity:: No Restrictions Nourishment:: Diabetic Diet - Follow up Plan Referrals: [facility] [Primary Care Provider] - 3 Days Disposition: HOME Quality - Care Measures CORE MEASURES:: N/A
== END 2020-05-07 12:20 | disposition home or self-care (01) | DRG 603 ==
LOC: ERS 18:28 → ONC 20:54
PROVIDERS: ADMIT Internal Medicine; ATTEND Internal Medicine
DX: L03.314 Cellulitis of groin (principal); Z68.41 Body mass index [BMI] 40.0-44.9, adult; E11.9 Type 2 diabetes mellitus without complications; E78.5 Hyperlipidemia, unspecified; E66.01 Morbid (severe) obesity due to excess calories; L30.4 Erythema intertrigo; I10 Essential (primary) hypertension; F17.200 Nicotine dependence, unspecified, uncomplicated; Z79.899 Other long term (current) drug therapy; Z79.84 Long term (current) use of oral hypoglycemic drugs
CPT/HCPCS: 36415; 36416; 80053; 80202; 83605; 85007; 85025; 85027; 87040; 96365; 96366; 96367; J1650; J1815; J2543; J3370; J3490; J7030

== ENCOUNTER 2023-03-29 17:07 | Emergency (ER) | payer BC ==
[2023-03-29] MEDS ORDERED: Ondansetron PF 4 MG/2 ML Vial ONE (18:02)
[2023-03-29] MEDS ORDERED: Ketorolac Tromethamine 30 MG/ML VIAL ONE (18:02)
[2023-03-29 18:28] LABS: Bacteria/HPF None Seen HPF (None Seen); Bilirubin Negative (Negative); Blood, Urine Negative (Negative); CAUTI Indications for Culture Pelvic or flank pain; Clarity Clear (Clear); Glucose, Urine (Dipstick) Greater than 1000 mg/dL (Negative); Ketone, Urine Negative (Negative); Leukocyte Negative Leu/uL (Negative); Nitrite Negative (Negative); Protein, Urine (Dipstick) Negative (Neg-Trace); RBC/HPF 0-3 HPF (0-3); Specific Gravity, Urine 1.023 (1.002-1.036); Squamous Epithelial 0-3 HPF (0-3); Urobilinogen Normal mg/dL (Less than 2); WBC/HPF 0-3 HPF (0-3)
[2023-03-29 18:30] LABS: Urine Culture Reflex No No
[2023-03-29 18:30] LABS: #Basophils 0.1 thou/uL (0.0-0.2); #Eosinphils 0.5 thou/uL (0.0-0.7); #Monocytes 1.1 thou/uL (0.11-0.59); #Neutrophils 10.1 thou/uL (1.40-6.50); %Basophils 0.9 % (0.0-1.0); %Lymphocytes 26.7 % (21.0-51.0); %Neutrophils 61.9 % (42.0-75.0); Hematocrit 48.3 % (42.0-52.0); Hemoglobin 16.4 g/dL (14.0-18.0); Mean Corpuscular Hemoglobin 29.8 pg (27.0-31.0); Mean Corpuscular Volume 87.8 fl (78.0-98.0); Mean Platelet Volume 10.5 fL (7.4-10.4); Platelet Count 343 10x3/uL (130-400); RBC Distribution Width 12.4 % (11.5-14.5); White Blood Cell (WBC) Count 16.3 10x3/uL (4.8-10.8)
[2023-03-29 18:54] LABS: ALT (SGPT) 29 U/L (8-55); AST (SGOT) 24 U/L (5-34); Albumin 4.1 g/dL (3.5-5.0); Alkaline Phosphatase 58 U/L (40-110); Anion Gap 15 mmol/L (10-20); BUN (Urea Nitrogen) 15 mg/dL (8.9-20.6); Bilirubin, Total 0.6 mg/dL (0.2-1.2); Calc. Creatinine Clearance 0 mL/min (70-130); Carbon Dioxide 21 mmol/L (22-29); Chloride 103 mmol/L (98-107); Estimated GFR 99; Globulin 2.6 g/dL (2.4-3.5); Glucose 223 mg/dL (70-105); Lipase 169 U/L (8-78); Potassium 4.3 mmol/L (3.5-5.1); Protein, Total 6.7 g/dL (6.0-8.3); Sodium 135 mmol/L (136-145)
== END 2023-03-29 20:30 | disposition home or self-care (01) ==
LOC: ERS 17:07
DX: R07.81 Pleurodynia (principal); R10.9 Unspecified abdominal pain; E11.9 Type 2 diabetes mellitus without complications; Z79.4 Long term (current) use of insulin; E78.5 Hyperlipidemia, unspecified; E66.9 Obesity, unspecified; I10 Essential (primary) hypertension; F17.210 Nicotine dependence, cigarettes, uncomplicated; F17.220 Nicotine dependence, chewing tobacco, uncomplicated; Z79.84 Long term (current) use of oral hypoglycemic drugs; Z79.899 Other long term (current) drug therapy
CPT/HCPCS: 76705; 80053; 81001; 83690; 85025; 93005; 96361; 96374; 96375; J1885; J2405

== ENCOUNTER 2023-09-19 12:58 | Emergency (ER) | payer BC ==
[2023-09-19] MEDS ORDERED: Ibuprofen 800 MG TAB ONE (13:20)
== END 2023-09-19 14:25 | disposition home or self-care (01) ==
LOC: ERS 12:58
DX: S40.012A Contusion of left shoulder, initial encounter (principal); E11.9 Type 2 diabetes mellitus without complications; I10 Essential (primary) hypertension; F17.210 Nicotine dependence, cigarettes, uncomplicated; W22.8XXA Striking against or struck by other objects, initial encounter